=== PATIENT | male | born 1965 | race Caucasian/White ===

== ENCOUNTER 2019-06-15 17:53 | Inpatient (IN) ==
[2019-06-15] MEDS ORDERED: Ondansetron 4 MG/2 ML VIAL IVP ONE (18:50)
[2019-06-15] MEDS ORDERED: 0.9 % Sodium Chloride 1,000 ML IVC ONE (19:10)
[2019-06-15] MEDS ORDERED: Morphine Sulfate 2 MG/ML SYRINGE IVP ONE ×2 (19:11→20:57)
[2019-06-15 19:58] LABS: Bilirubin,Urine Small (Negative); Blood,Urine Negative (Negative); Clarity,Urine Turbid (Clear); Color,Urine Dark Yellow (Yellow); Glucose,Urine (UA) Normal (Normal); Ketones,Urine Trace mg/dL (Negative); Leukocyte Esterase,Urine Trace (Negative); Nitrite,Urine Negative (Negative); Protein,Urine 100 mg/dL (Neg-Trace); Specific Gravity,Urine 1.028 (1.010-1.025); Urobilinogen,Urine Normal (Normal)
[2019-06-15 20:00] LABS: Bacteria,Urine None Seen per hpf (None-Few); Hyaline Casts,Urine Moderate per lpf (None-Few); Squamous Epithelial Cell,Urine Many per lpf (None-Few)
[2019-06-15 20:29] LABS: Basophils % 0.2 %; Eosinophils % 0.1 %; Hematocrit 45.2 % (37.5-50.1); Hemoglobin 15.1 g/dL (12.9-16.9); Immature Granulocytes % 0.4 % (0-4); Lymphocytes % 7.1 %; Mean Corpuscular HGB Conc 33.4 g/dL (31.6-35.5); Mean Corpuscular Hemoglobin 28.7 pg (28.0-33.3); Mean Corpuscular Volume 85.8 fL (83.0-100.0); Mean Platelet Volume 10.8 fL (9.4-12.4); Monocytes # 0.8 K/mcL (0.0-1.3); Monocytes % 5.6 %; Neutrophils # 12.3 K/mcL (1.6-8.9); Platelet Count 277 K/mcL (140-400); Red Blood Count 5.27 M/mcL (4.19-5.50); Red Cell Distribution Width 14.4 % (11.5-14.5); Segmented Neutrophils % 86.6 %; White Blood Count 14.2 K/mcL (4.3-11.1)
--- NOTE | 2019-06-15 20:29 | Emergency Department Note ---
Disposition Clinical Impression: Small bowel obstruction Disposition: Admitted As Inpatient Condition: Fair Referrals: NONE,PCP [Primary Care Provider] - Time of Disposition: 20:29 Abdominal Pain HPI - General Chief Complaint: ED Abdominal Pain Stated Complaint: ABD Pain,Vomiting,weakness Time Seen by Provider: 06/15/19 18:34 Source: patient Mode of arrival: ambulatory Limitations: no limitations Nursing Notes Reviewed: Yes Vital Signs Reviewed: Yes - History of Present Illness Pain Scale: 8 - Related Data Allergies Allergy/AdvReac Type Severity Reaction Status Date / Time No Known Allergies Allergy Verified 06/15/19 18:08 Abdominal Pain PMH - Past Medical History Medical history: Reports: diabetes, hypertension Male Surgical History: Reports: appendectomy, cholecystectomy, colectomy Psychiatric history: Reports: no psych history - Social History Smoking status: Never smoker Alcohol use: Reports: rarely Drug use: Reports: none Physical Exam - General Limitations: no limitations General appearance: alert, in distress Course Vital Signs Temperature 98.3 F 06/15/19 18:08 Pulse Rate 113 06/15/19 18:08 Respiratory Rate 18 06/15/19 18:08 Blood Pressure 120/81 06/15/19 18:08 O2 Sat by Pulse Oximetry 98 06/15/19 18:08 Temperature 98.3 F 06/15/19 18:08 Pulse Rate 113 06/15/19 18:08 Respiratory Rate 18 06/15/19 18:08 Blood Pressure 120/81 06/15/19 18:08 O2 Sat by Pulse Oximetry 98 06/15/19 18:08 Oxygen Delivery Oxygen Delivery Room Air Abdominal Pain - Lab Data Lab Results 06/15/19 Range/Units 18:33 Urine Color Dark Yellow (Yellow) Urine Clarity Turbid A (Clear) Urine pH 6.0 (5.0-8.0) pH Units Ur Specific [place] 1.028 H (1.010-1.025) Urine Protein 100 H (Neg-Trace) mg/dL Urine Glucose (UA) Normal (Normal) mg/dL Urine Ketones Trace H (Negative) mg/dL Urine Blood Negative (Negative) Urine Nitrite Negative (Negative) Urine Bilirubin Small H (Negative) Urine Urobilinogen Normal (Normal) mg/dL Ur Leukocyte Esterase Trace H (Negative) Urine Microscopic RBC 5-15 H (0-3) per hpf Urine Microscopic WBC 5-15 H (0-3) per hpf Ur Squamous Epith Cells Many H (None-Few) per lpf Urine Bacteria None Seen (None-Few) per hpf Hyaline Casts Moderate H (None-Few) per lpf Ur Culture Indicated? YES A (NO) Attestation Statement - Attestation Attestation: I have seen this patient with the resident physician, I have personally evaluated this patient. I had reviewed the chart and document dictation by the resident physician and aM in agreement with the information documented by the resident physician. Please see documentation by the resident physician for complete chart including past medical history, family medical history, review of systems, current history and physical and laboratory and imaging studies. I was present for all procedures, provided direct supervision for all procedures, was present for the entirety of all procedures and provided direct guidance during the procedures. Please see documentation by the resident physician for any procedures performed. I have reviewed all interpretations of EKGs, and reviewed all EKGs performed on patient's as well. I have also reviewed reports of imaging as provided by radiology. Patient presented to emergency department with chief complaint of sudden onset of progressively increasing abdominal pain nausea vomiting with bilious- appearing emesis, he states he is also not passed gas or had a bowel movement, he is concerned that he has a small bowel obstruction he had problems with a bowel obstruction the past actually required partial colectomy related to this. He is also his appendix taken out as well as his gallbladder removed. The patient states that he has had no fevers or chills. He denies headache or neck pain. He denies any urinary changes low has noted some darkening of his urine. Denies any significant body aches or pains but states that he has been working very hard the last few days increased instruction states it is nothing really different than usual. On physical examination he is uncomfortable in appearance, cranial nerves are grossly intact oropharynx reveals slightly dry appearing mucous membranes. Lungs are clear heart is regular tachycardic, with a heart rate of 110. The abdomen is distended, decreased bowel sounds diffusely tender without rebound guarding or peritoneal sign. Skin is warm dry without rash or petechiae. Patient an IV placed, was given IV fluids IV pain medication IV nausea medication laboratory studies and a CT scan were ordered. CT scan showed evidence for small bowel obstruction with a transition zone in the pelvis likely related to scar tissue per radiology read secondary to prior surgeries. Surgery will be contacted, for admission of this patient, will also discuss consideration of an NG tube with surgery.
[2019-06-15 20:48] LABS: Alanine Aminotransferase 51 Units/L (7-52); Albumin 4.2 g/dL (3.5-5.7); Albumin/Globulin Ratio 1.4 (1.1-2.2); Alkaline Phosphatase 140 Units/L (34-104); Aspartate Amino Transferase 28 Units/L (13-39); BUN/Creatinine Ratio 11 (6-26); Bilirubin,Direct 0.2 mg/dL (0.0-0.2); Bilirubin,Indirect 0.6 mg/dL (0.0-1.2); Bilirubin,Total 0.8 mg/dL (0.3-1.0); Blood Urea Nitrogen 12 mg/dL (6-20); Calcium 9.5 mg/dL (8.6-10.3); Carbon Dioxide 33 mEq/L (23-29); Chloride 95 mEq/L (98-107); Globulin 2.9 g/dL (2.4-3.5); Glucose 155 mg/dL (70-105); Lipase 20 Units/L (11-82); Osmolality,Calculated 283 (280-300); Potassium 2.7 mEq/L (3.5-5.1); Sodium 135 mEq/L (136-145); Total Protein 7.1 g/dL (6.4-8.9); eGFR For African Americans > 60 (> 60); eGFR For Non-African Americans > 60 (> 60)
[2019-06-15] MEDS ORDERED: Potassium Chloride 40 MEQ, Lidocaine 1% 2 ML in D5% in Water 500 ML IVPB ONE (20:48)
[2019-06-15] MEDS ORDERED: Piperacillin/Tazobactam 3.375 GM in 0.9 % Sodium Chloride Mini Bag 100 ML IVPB ONE (20:54)
[2019-06-15] MEDS ORDERED: Ringers Solution, Lactated 1,000 ML IVC SCH (21:00)
[2019-06-15] MEDS ORDERED: 0.9 % Sodium Chloride 1,000 ML IVC SCH (21:00)
--- NOTE | 2019-06-15 21:29 | Emergency Department Note ---
Disposition Clinical Impression: Small bowel obstruction Disposition: Admitted As Inpatient Condition: Fair Time of Disposition: 21:29 General Adult HPI - General Chief complaint: ED Abdominal Pain Stated complaint: ABD Pain,Vomiting,weakness Time Seen by Provider: 06/15/19 18:34 Source: patient Mode of arrival: ambulatory Limitations: no limitations Nursing Notes Reviewed: Yes Vital Signs Reviewed: Yes - History of Present Illness HPI Narrative: Patient is a 53-year-old male with past medical history of colectomy, appendectomy and cholecystectomy presents to ED for evaluation of sudden onset cramping abdominal pain that is worsened in intensity overnight beginning at 7:00 PM yesterday evening. He states he has not had a bowel movement or passed gas today. Episodes of bilious emesis prior to arrival today. Pain Scale: 8 - Related Data Home Medications Medication Instructions Recorded Confirmed Metformin HCl [Fortamet] 500 mg PO DAILY 06/15/19 06/16/19 Omeprazole [PriLOSEC] 40 mg PO DAILY 06/15/19 06/16/19 Tadalafil [Cialis] 5 mg PO DAILY 06/15/19 06/16/19 hydroCHLOROthiazide 25 mg PO DAILY 06/15/19 06/16/19 [Hydrochlorothiazide] Buprenorphine HCl/Naloxone HCl 1.75 strip SL DAILY 06/16/19 06/16/19 [Suboxone 8 mg-2 mg Sl Film] Mometasone/Formoterol [Dulera 200 1 puff PO BID PRN 06/16/19 06/16/19 Mcg/5 Mcg Inhaler] Testosterone 1.62 mg TP DAILY 06/16/19 06/16/19 Allergies Allergy/AdvReac Type Severity Reaction Status Date / Time No Known Allergies Allergy Verified 06/16/19 15:24 All systems ED: reviewed and negative except as stated. Review of Systems: As Per HPI Constitutional: Denies: fever, chills Cardiovascular: Denies: chest pain Gastrointestinal: Reports: abdominal pain, nausea, vomiting. Denies: diarrhea, constipation, hematemesis, melena, hematochezia Musculoskeletal: Denies: back pain Past Medical History - Past Medical History Attestation: Yes The following information was validated with the patient. Medical history: Reports: diabetes, hypertension Psychiatric history: Reports: no psych history - Social History Smoking Status: Never smoker Smokeless Tobacco Status: No Alcohol use: Reports: rarely Drug use: Reports: none Physical Exam CONSTITUTIONAL: Alert and oriented X3, actively vomiting. Tachycardic otherwise vitals WNL. HEAD: Normocephalic; atraumatic. EYES: PERRL, no scleral icterus. NOSE: The nose is normal in appearance without rhinorrhea RESP: Normal chest excursion with respiration; breath sounds clear and equal bilaterally; no wheezes, rhonchi, or rales CARD: Regular rhythm, without murmurs, rub or gallop ABD: Distended; Diffusely tender without rigidity, rebound or guarding. Hypoactive bowel sounds. SKIN: Normal for age and race; warm and dry; no apparent lesions - General Limitations: no limitations General appearance: alert, in distress Course Course Narrative: Patient was evaluated with concerns for obstruction given his prior history and his current symptoms. CT scan did show small bowel obstruction with the transition zone in the mid pelvis possibly secondary to adhesion from prior surgery. Labs were significant for leukocytosis as well as a hypokalemic at 2.7. I suspect this is due to episodes of emesis prior to arrival. I discussed with the surgical list instructional resource teacher, Dr. Funes and she agreed to consult on the patient with primary admission to the hospitalist. Recommended NG tube with low intermittent suctioning, maintenance IV fluids, and Zosyn given the white count. I discussed with the hospitalist on-call, Dr. Camp he agreed to accept patient. I also ordered replacement potassium for the patient. Vital Signs Temperature 98.3 F 06/15/19 18:08 Pulse Rate 113 06/15/19 18:08 Respiratory Rate 18 06/15/19 18:08 Blood Pressure 120/81 06/15/19 18:08 O2 Sat by Pulse Oximetry 98 06/15/19 18:08 Temperature 98.3 F 06/15/19 18:08 Pulse Rate 91 06/15/19 20:41 Respiratory Rate 20 06/15/19 20:41 Blood Pressure 136/75 06/15/19 20:41 O2 Sat by Pulse Oximetry 97 06/15/19 20:41 Oxygen Delivery Oxygen Delivery Room Air Medical Decision Making - Medical Records Medical records reviewed: Yes I reviewed the patient's medical records. - Lab Data Lab results reviewed: Yes I reviewed the patient's lab results. Result diagrams: 06/16/19 06:05 06/16/19 06:05 Lab Results 06/15/19 06/15/19 06/15/19 Range/Units 18:33 19:55 19:55 WBC 14.2 H (4.3-11.1) K/mcL RBC 5.27 (4.19-5.50) M/mcL Hgb 15.1 (12.9-16.9) g/dL Hct 45.2 (37.5-50.1) % MCV 85.8 (83.0-100.0) fL MCH 28.7 (28.0-33.3) pg MCHC 33.4 (31.6-35.5) g/dL RDW 14.4 (11.5-14.5) % Plt Count 277 (140-400) K/mcL MPV 10.8 (9.4-12.4) fL Immature Gran % 0.4 (0-4) % Seg Neutrophils % 86.6 % Lymphocytes % 7.1 % Monocytes % 5.6 % Eosinophils % 0.1 % Basophils % 0.2 % Neutrophils # 12.3 H (1.6-8.9) K/mcL Lymphocytes # 1.0 (0.6-4.6) K/mcL Monocytes # 0.8 (0.0-1.3) K/mcL Eosinophils # 0.0 (0.0-0.6) K/mcL Basophils # 0.0 (0.0-0.2) K/mcL Sodium 135 L (136-145) mEq/L Potassium 2.7 L (3.5-5.1) mEq/L Chloride 95 L (98-107) mEq/L Carbon Dioxide 33 H (23-29) mEq/L BUN 12 (6-20) mg/dL Creatinine 1.06 (0.70-1.30) mg/dL Est GFR ( Amer) > 60 (> 60) Est GFR (Non-Af Amer) > 60 (> 60) BUN/Creatinine Ratio 11 (6-26) Glucose 155 H (70-105) mg/dL Calculated Osmolality 283 (280-300) Calcium 9.5 (8.6-10.3) mg/dL Total Bilirubin 0.8 (0.3-1.0) mg/dL Direct Bilirubin 0.2 (0.0-0.2) mg/dL Indirect Bilirubin 0.6 (0.0-1.2) mg/dL AST 28 (13-39) Units/L ALT 51 (7-52) Units/L Alkaline Phosphatase 140 H (34-104) Units/L Creatine Kinase (30-223) Units/L Serum Total Protein 7.1 (6.4-8.9) g/dL Albumin 4.2 (3.5-5.7) g/dL Globulin 2.9 (2.4-3.5) g/dL Albumin/Globulin Ratio 1.4 (1.1-2.2) Lipase 20 (11-82) Units/L Urine Color Dark Yellow (Yellow) Urine Clarity Turbid A (Clear) Urine pH 6.0 (5.0-8.0) pH Units Ur Specific [place] 1.028 H (1.010-1.025) Urine Protein 100 H (Neg-Trace) mg/dL Urine Glucose (UA) Normal (Normal) mg/dL Urine Ketones Trace H (Negative) mg/dL Urine Blood Negative (Negative) Urine Nitrite Negative (Negative) Urine Bilirubin Small H (Negative) Urine Urobilinogen Normal (Normal) mg/dL Ur Leukocyte Esterase Trace H (Negative) Urine Microscopic RBC 5-15 H (0-3) per hpf Urine Microscopic WBC 5-15 H (0-3) per hpf Ur Squamous Epith Cells Many H (None-Few) per lpf Urine Bacteria None Seen (None-Few) per hpf Hyaline Casts Moderate H (None-Few) per lpf Ur Culture Indicated? YES A (NO) 06/15/19 Range/Units 19:55 WBC (4.3-11.1) K/mcL RBC (4.19-5.50) M/mcL Hgb (12.9-16.9) g/dL Hct (37.5-50.1) % MCV (83.0-100.0) fL MCH (28.0-33.3) pg MCHC (31.6-35.5) g/dL RDW (11.5-14.5) % Plt Count (140-400) K/mcL MPV (9.4-12.4) fL Immature Gran % (0-4) % Seg Neutrophils % % Lymphocytes % % Monocytes % % Eosinophils % % Basophils % % Neutrophils # (1.6-8.9) K/mcL Lymphocytes # (0.6-4.6) K/mcL Monocytes # (0.0-1.3) K/mcL Eosinophils # (0.0-0.6) K/mcL Basophils # (0.0-0.2) K/mcL Sodium (136-145) mEq/L Potassium (3.5-5.1) mEq/L Chloride (98-107) mEq/L Carbon Dioxide (23-29) mEq/L BUN (6-20) mg/dL Creatinine (0.70-1.30) mg/dL Est GFR ( Amer) (> 60) Est GFR (Non-Af Amer) (> 60) BUN/Creatinine Ratio (6-26) Glucose (70-105) mg/dL Calculated Osmolality (280-300) Calcium (8.6-10.3) mg/dL Total Bilirubin (0.3-1.0) mg/dL Direct Bilirubin (0.0-0.2) mg/dL Indirect Bilirubin (0.0-1.2) mg/dL AST (13-39) Units/L ALT (7-52) Units/L Alkaline Phosphatase (34-104) Units/L Creatine Kinase 171 (30-223) Units/L Serum Total Protein (6.4-8.9) g/dL Albumin (3.5-5.7) g/dL Globulin (2.4-3.5) g/dL Albumin/Globulin Ratio (1.1-2.2) Lipase (11-82) Units/L Urine Color (Yellow) Urine Clarity (Clear) Urine pH (5.0-8.0) pH Units Ur Specific [place] (1.010-1.025) Urine Protein (Neg-Trace) mg/dL Urine Glucose (UA) (Normal) mg/dL Urine Ketones (Negative) mg/dL Urine Blood (Negative) Urine Nitrite (Negative) Urine Bilirubin (Negative) Urine Urobilinogen (Normal) mg/dL Ur Leukocyte Esterase (Negative) Urine Microscopic RBC (0-3) per hpf Urine Microscopic WBC (0-3) per hpf Ur Squamous Epith Cells (None-Few) per lpf Urine Bacteria (None-Few) per hpf Hyaline Casts (None-Few) per lpf Ur Culture Indicated? (NO) - Radiology Data Radiology results reviewed: Yes I reviewed the patient's radiology results. Abdomen/Pelvis CT 06/15/19 18:51 IMPRESSION: Small bowel obstruction with transition zone in the mid pelvis. Obstruction may be secondary to an adhesion from prior surgery. There are postsurgical changes from resection of the cecum and ileocecal valve. The gallbladder is surgically absent. Mild fatty infiltration liver. D/ / Yony Henriquez MD / Yony Henriquez MD Interpreting Provider: Yony Henriquez MD Attestation Statement - Attestation Attestation: I have seen this patient with the resident physician, I have personally evaluated this patient. I had reviewed the chart and document dictation by the resident physician and aM in agreement with the information documented by the resident physician. Please see documentation by the resident physician for complete chart including past medical history, family medical history, review of systems, current history and physical and laboratory and imaging studies. I was present for all procedures, provided direct supervision for all procedures, was present for the entirety of all procedures and provided direct guidance during the procedures. Please see documentation by the resident physician for any procedures performed. I have reviewed all interpretations of EKGs, and reviewed all EKGs performed on patient's as well. I have also reviewed reports of imaging as provided by radiology.
[2019-06-15] MEDS ORDERED: Ondansetron 4 MG/2 ML VIAL IVP PRN (22:58)
[2019-06-15] MEDS ORDERED: *HR* Dextrose 50 % in Water (Syg) 50 ML SYRINGE IVP PRN (23:13)
[2019-06-15] MEDS ORDERED: Dextrose Gel 15 GM/37.5 ML TUBE PO PRN ×2 (23:13)
--- NOTE | 2019-06-15 23:13 | Internal Med History&Physical ---
Date of Encounter: 06/15/19 Time of Encounter: 23:12 Internal Medicine - H&P: HPI Chief complaint: abdominal pain Admitted From: Home Plans for Post Hospital Care: Home History of present illness: Cr Morgan is a 53 year old man with a history of partial colectomy in 2011 secondary to an obstruction at which time he also underwent cholecystectomy and appendectomy. He presents emergency room complaining of diffuse abdominal pain that started yesterday evening described as cramping accompanied by bowel distention and bloating. He says his last bowel movement was 2 days ago and has not passed any gas today. He also complains of profuse bilious vomiting today. No fever or chills reported. In the emergency room he was tachycardic and CT scan showed concerns for small bowel obstruction with transition zone in the mid pelvis. He was given analgesics and started on IV fluids. Vitals: Reviewed General: Obese white male lying in bed in no acute distress. Skin: Warm, diaphoretic. HEENT: Moist mucous membranes. No conjunctivae pallor. Neck: No lymphadenopathy. No JVD. No carotid bruits. No palpable thyroid. Chest: Normal thoracic expansion. Normal breath sounds. Clear to auscultation. Heart: Normal S1 & S2; rhythmic. No rubs or murmurs. Abdomen: Distended, soft and mildly tender to palpation. No peritoneal reaction. Bowel sounds are not present. Extremities: No clubbing, cyanosis or edema. No calf tenderness. Normal distal pulses. Neurological: Awake, alert and oriented to person, place and time. No focal deficits. Psych: Affect appropriate. Assessment/Plan 1. Small bowel obstruction: Unclear if it is mechanical and secondary to adhesions given his prior surgical history. He does have a rather notable hypokalemia which could be a causal factor in itself for a functional ileus however it could also be secondary to the profuse vomiting developed due to the obstruction. Surgery consult has been placed. Will keep him NPO, NG tube ordered to LIS, analgesics/antiemetics as needed and fluid resuscitation. 2. Hypokalemia: Supplement intravenously. Check Mg and Phos as well. 3. DVT prophylaxis: Subq heparin ordered. Past Med Surg Social Fam HX - Past Medical History Medical history: diabetes, hypertension Psychiatric history: no psych history - Past Surgical History Additional surgical history: back sx, knee sx, leg sx - Social History Smoking Status: Never smoker Smokeless Tobacco Status: No Alcohol use: rarely Drug use: none Internal Medicine - H&P: Meds Androgel TP DAILY 06/15/19 [History] Cialis 5 PO DAILY 06/15/19 [History] Hydrochlorothiazide PO DAILY 06/15/19 [History] Omeprazole 40 PO DAILY 06/15/19 [History] metFORMIN 500 PO DAILY 06/15/19 [History] Allergy/AdvReac Type Severity Reaction Status Date / Time No Known Allergies Allergy Verified 06/15/19 18:08 All Systems PM: A 10-system review of systems was performed and is negative for pertinent findin gs except as documented above in the HPI. Family history reviewed and found non-contributory. - Constitutional Vitals: Temp Pulse Resp BP Pulse Ox 98.3 F 91 20 124/70 97 06/15/19 18:08 06/15/19 20:41 06/15/19 22:55 06/15/19 22:55 06/15/19 20:41 Exam: . Internal Med - H&P Results - Labs CBC & Chem 7: 06/15/19 19:55 06/15/19 19:55 Labs: Short CBC 06/15/19 Range/Units 19:55 WBC 14.2 H (4.3-11.1) K/mcL Hgb 15.1 (12.9-16.9) g/dL Hct 45.2 (37.5-50.1) % Plt Count 277 (140-400) K/mcL Neutrophils # 12.3 H (1.6-8.9) K/mcL BMP 06/15/19 19:55 Sodium 135 L Potassium 2.7 L Chloride 95 L Carbon Dioxide 33 H BUN 12 Creatinine 1.06 Glucose 155 H Calcium 9.5 Liver Function 06/15/19 Range/Units 19:55 Total Bilirubin 0.8 (0.3-1.0) mg/dL Direct Bilirubin 0.2 (0.0-0.2) mg/dL AST 28 (13-39) Units/L ALT 51 (7-52) Units/L Alkaline Phosphatase 140 H (34-104) Units/L Albumin 4.2 (3.5-5.7) g/dL Urine 06/15/19 Range/Units 18:33 Urine Color Dark Yellow (Yellow) Urine Clarity Turbid A (Clear) Urine pH 6.0 (5.0-8.0) pH Units Ur Specific [place] 1.028 H (1.010-1.025) Urine Protein 100 H (Neg-Trace) mg/dL Urine Glucose (UA) Normal (Normal) mg/dL - Impressions ITS Impressions Abdomen/Pelvis CT 06/15/19 18:51 IMPRESSION: Small bowel obstruction with transition zone in the mid pelvis. Obstruction may be secondary to an adhesion from prior surgery. There are postsurgical changes from resection of the cecum and ileocecal valve. The gallbladder is surgically absent. Mild fatty infiltration liver. D/ / Yony Henriquez MD / Yony Henriquez MD Interpreting Provider: Yony Henriquez MD - Time Spent With Patient Total time spent is greater than 50% in coordination of care (as documented) at patient's floor/unit and/or counseling patient: Greater than 35 minutes
[2019-06-16] MEDS ORDERED: *HR* OxyCODONE Immed Rel 5 MG TABLET PO PRN (02:25)
[2019-06-16] MEDS: Insulin LISPRO 300 UNITS/3 ML VIAL SQ SCH ×5 (03:09→23:48)
--- NOTE | 2019-06-16 05:27 | AcuteCare Surgery Consult Note ---
Date of Encounter: 06/16/19 Time of Encounter: 05:00 Assessment and Plan (1) Small bowel obstruction Current Visit: Yes Status: Acute Continue IVF/NPO/NGT. However, pt reports no improvement after the initiation of conservative therapy for SBO. He is writhing in pain. Pt is in severe distress due to the pain of his obstruction. Recommend surgery to release SBO. Procedure, risks and benefits of surgery are discussed. Possible complications include but, are not limitied to bleeding, infection or bowel injury. Pt understands and wished to proceed with [facility]. Case will be discussed with acute care surgeon on duty today. COnsent is obtained and surgery is scheduled. 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 He describes the pain as sharp. It is diffuse. It is severe and doubled him over in pain. He reports several episodes of nausea and vomiting. He denies hematemesis. He reports small liquid BM a little while ago. Past Med Surg Social Fam HX - Past Medical History Medical history: diabetes, hypertension Psychiatric history: no psych history - Past Surgical History Additional surgical history: back sx, knee sx, leg sx - Social History Smoking Status: Never smoker Smokeless Tobacco Status: No Alcohol use: rarely Drug use: none Medications and Allergies Androgel TP DAILY 06/15/19 [History] Cialis 5 PO DAILY 06/15/19 [History] Hydrochlorothiazide PO DAILY 06/15/19 [History] Omeprazole 40 PO DAILY 06/15/19 [History] metFORMIN 500 PO DAILY 06/15/19 [History] Allergy/AdvReac Type Severity Reaction Status Date / Time No Known Allergies Allergy Verified 06/15/19 18:08 Review of Systems All systems PM: The remainder of the systems were reviewed and are negative - Constitutional anorexia, no chills, no fatigue, no fever(s), no night sweats, no weakness, no weight loss - EENT Nose, mouth and throat: dry mouth, no dysphagia, no nasal congestion, no nasal discharge, no sinus pain, no sinus pressure, no sore throat - Cardiovascular no chest pain, no diaphoresis, no dyspnea, no edema - Respiratory no cough, no dyspnea, no wheezing - Gastrointestinal abdominal pain, belching, bloating, constipation, cramping, nausea, vomiting, no diarrhea, no hematemesis - Genitourinary no dysuria, no flank pain, no urinary frequency - Musculoskeletal no back pain, no joint swelling, no limited range of motion, no neck pain - Integumentary no dry skin, no pruritus, no rash, no wounds, no jaundice - Neurological no confusion, no dizziness, no focal weakness, no syncope, no weakness - Psychiatric no anxiety, no depression - Hematologic/Lymphatic no easy bleeding, no easy bruising General Surgery Exam Initial Vital Signs Temp Pulse Resp BP Pulse Ox 98.3 F 113 18 120/81 98 06/15/19 18:08 06/15/19 18:08 06/15/19 18:08 06/15/19 18:08 06/15/19 18:08 - General physical appearance moderate distress, severe pain, other (Pt is in distress and appears to have peritoneal signs). negative: jaundice - Eyes PERRL, normal ocular movement. negative: icteric - ENT no congestion, dry mucosa. negative: nasal discharge - Neck no masses, trachea midline, no lymphadectomy, no venous distension - Respiratory normal respiratory effort, clear to auscultation - Cardiovascular Cardiovascular exam: Present: RRR. Absent: JVD - Abdomen Abdomen general surgery: Present: bowel sounds present (hypoactive with tinkles), distended, tender. Absent: guarding, rebound Abdominal Tenderness: Present: diffusely - Genitourinary Present: normal penis with no external lesions - Integumentary Integumentary general surgery: Present: warm and dry - Neurologic Present: CN 2-12 grossly intact, normal coordination - Musculoskeletal Present: normal posture - Psychiatric Psychiatric general surgery: Present: A&Ox3, appropriate Exam Initial Vital Signs Temp Pulse Resp BP Pulse Ox 98.3 F 113 18 120/81 98 06/15/19 18:08 06/15/19 18:08 06/15/19 18:08 06/15/19 18:08 06/15/19 18:08 Results - Labs 06/16/19 06:05 06/15/19 19:55 Abnormal lab results WBC 14.2 K/mcL (4.3-11.1) H 06/15/19 19:55 Neutrophils # 12.3 K/mcL (1.6-8.9) H 06/15/19 19:55 Sodium 135 mEq/L (136-145) L 06/15/19 19:55 Potassium 2.7 mEq/L (3.5-5.1) L 06/15/19 19:55 Chloride 95 mEq/L (98-107) L 06/15/19 19:55 Carbon Dioxide 33 mEq/L (23-29) H 06/15/19 19:55 Glucose 155 mg/dL (70-105) H 06/15/19 19:55 Alkaline Phosphatase 140 Units/L (34-104) H 06/15/19 19:55 Urine Clarity Turbid (Clear) A 06/15/19 18:33 Ur Specific [place] 1.028 (1.010-1.025) H 06/15/19 18:33 Urine Protein 100 mg/dL (Neg-Trace) H 06/15/19 18:33 Urine Ketones Trace mg/dL (Negative) H 06/15/19 18:33 Urine Bilirubin Small (Negative) H 06/15/19 18:33 Ur Leukocyte Esterase Trace (Negative) H 06/15/19 18:33 Urine Microscopic RBC 5-15 per hpf (0-3) H 06/15/19 18:33 Urine Microscopic WBC 5-15 per hpf (0-3) H 06/15/19 18:33 Ur Squamous Epith Cells Many per lpf (None-Few) H 06/15/19 18:33 Hyaline Casts Moderate per lpf (None-Few) H 06/15/19 18:33 Ur Culture Indicated? YES (NO) A 06/15/19 18:33 Diabetes panel 06/15/19 Range/Units 19:55 Sodium 135 L (136-145) mEq/L Potassium 2.7 L (3.5-5.1) mEq/L Chloride 95 L (98-107) mEq/L Carbon Dioxide 33 H (23-29) mEq/L BUN 12 (6-20) mg/dL Creatinine 1.06 (0.70-1.30) mg/dL Glucose 155 H (70-105) mg/dL Calcium 9.5 (8.6-10.3) mg/dL AST 28 (13-39) Units/L ALT 51 (7-52) Units/L Alkaline Phosphatase 140 H (34-104) Units/L Albumin 4.2 (3.5-5.7) g/dL Calcium panel 06/15/19 Range/Units 19:55 Calcium 9.5 (8.6-10.3) mg/dL Albumin 4.2 (3.5-5.7) g/dL Pituitary panel 06/15/19 Range/Units 19:55 Sodium 135 L (136-145) mEq/L Potassium 2.7 L (3.5-5.1) mEq/L Chloride 95 L (98-107) mEq/L Carbon Dioxide 33 H (23-29) mEq/L BUN 12 (6-20) mg/dL Creatinine 1.06 (0.70-1.30) mg/dL Glucose 155 H (70-105) mg/dL Calcium 9.5 (8.6-10.3) mg/dL Adrenal panel 06/15/19 Range/Units 19:55 Sodium 135 L (136-145) mEq/L Potassium 2.7 L (3.5-5.1) mEq/L Chloride 95 L (98-107) mEq/L Carbon Dioxide 33 H (23-29) mEq/L BUN 12 (6-20) mg/dL Creatinine 1.06 (0.70-1.30) mg/dL Glucose 155 H (70-105) mg/dL Calcium 9.5 (8.6-10.3) mg/dL Total Bilirubin 0.8 (0.3-1.0) mg/dL AST 28 (13-39) Units/L ALT 51 (7-52) Units/L Alkaline Phosphatase 140 H (34-104) Units/L Albumin 4.2 (3.5-5.7) g/dL All other labs normal. - Imaging CT scan - abdomen: image reviewed (segment of dilated bowel with obvious transition point and no closed-loop) CT scan - pelvis: image reviewed Consult Discharge Plan - Plan Referrals: NONE,PCP [Primary Care Provider] -
[2019-06-16] MEDS: *HR* Heparin 5,000 UNIT/ML VIAL SQ SCH ×2 (06:22→18:48)
[2019-06-16] MEDS: Ketorolac 30 MG/ML VIAL IVP PRN ×3 (06:29→17:44)
[2019-06-16] MEDS: Ringers Solution, Lactated 1,000 ML IVC SCH ×4 (06:29→20:58)
[2019-06-16 06:30] LABS: Basophils % 0.3 %; Eosinophils # 0.1 K/mcL (0.0-0.6); Eosinophils % 0.6 %; Hemoglobin 14.4 g/dL (12.9-16.9); Immature Granulocytes % 0.3 % (0-4); Lymphocytes # 1.5 K/mcL (0.6-4.6); Lymphocytes % 14.3 %; Mean Corpuscular HGB Conc 33.5 g/dL (31.6-35.5); Mean Corpuscular Volume 86.5 fL (83.0-100.0); Mean Platelet Volume 10.4 fL (9.4-12.4); Monocytes # 0.9 K/mcL (0.0-1.3); Monocytes % 8.5 %; Platelet Count 283 K/mcL (140-400); Red Blood Count 4.97 M/mcL (4.19-5.50); Red Cell Distribution Width 14.6 % (11.5-14.5); White Blood Count 10.5 K/mcL (4.3-11.1)
[2019-06-16 06:36] LABS: INR 0.9; Prothrombin Time 10.6 Seconds (9.4-12.1)
[2019-06-16 06:39] LABS: Activated Partial Thrombo Time 27.6 Seconds (26.0-36.0)
[2019-06-16 06:55] LABS: BUN/Creatinine Ratio 14 (6-26); Blood Urea Nitrogen 14 mg/dL (6-20); Calcium 8.7 mg/dL (8.6-10.3); Carbon Dioxide 32 mEq/L (23-29); Chloride 96 mEq/L (98-107); Glucose 137 mg/dL (70-105); Magnesium 1.9 mg/dL (1.6-2.6); Osmolality,Calculated 291 (280-300); Potassium 2.7 mEq/L (3.5-5.1); Sodium 139 mEq/L (136-145); eGFR For African Americans > 60 (> 60); eGFR For Non-African Americans > 60 (> 60)
[2019-06-16 07:14] LABS: Estimated Average Glucose 169 mg/dl
[2019-06-16] MEDS ORDERED: Potassium Chloride 40 MEQ, Lidocaine 1% 2 ML in D5% in Water 500 ML IVPB ONE (08:09)
[2019-06-16] MEDS: Piperacillin/Tazobactam 3.375 GM in 0.9 % Sodium Chloride Mini Bag 100 ML IVPB SCH ×3 (08:20→23:59)
--- NOTE | 2019-06-16 09:34 | Internal Med Progress Note ---
<Jake Linares L - Last Filed: 06/16/19 16:54> Hospitalist Progress Note - Encounter Date of Encounter: 06/16/19 Time of Encounter: 09:31 - Subjective Interval History: Pt seen and examined. Uncomfortable due to abdominal pain and NG tube placement. Pt reports that abdominal pain is somewhat imporved. Is ready to have surgery pe rformed today for SBO release. Deneis PHILIPPE, SOB, constipation, Diarrhea, changes in urination. Pt reports he has been unable to keep any foods down, including liquids. Reports having a small bowel movement early this morning. He his not passing any flatulence. - Exam Vitals: Temp Pulse Resp BP Pulse Ox 98.4 F 86 15 124/76 93 06/16/19 06:23 06/16/19 06:23 06/16/19 06:23 06/16/19 06:23 06/16/19 06:23 Exam: Gen: Vitals noted. No acute distress. NG tube in place , on suction Eyes: anicteric sclerae, moist conjunctivae; no lid-lag; Pupils equal and reactive to light HENT: Atraumatic, normocephalic; oropharynx clear with moist mucous membranes and no mucosal ulcerations Neck: Trachea midline; supple, no thyromegaly or lymphadenopathy Cardiac: RRR, no murmurs, rubs or gallops, S1/S2 Pulmonary: CTA bilaterally, no wheezes, rales or rhonchi, equal chest expansion Abdomen: tender to light and deep palpation, worse between L and R upper quadrants. No masses. No rigidity or guarding MSK: ROM intact, no joint swelling noted Extremities: no BLE edema, nontender calf, no cyanosis or clubbing Skin: Normal temperature, turgor and texture; no rash, ulcers or subcutaneous nodules Neuro: moves all extremities, no focal deficits. Psych: Appropriate mood and behavior. A&Ox3 - Assessment and Plan (1) Small bowel obstruction Current Visit: Yes Status: Acute Assessment and Plan: Small Bowel obstruction -secondary to adhesions from previous abdominal surgery: Colectomy, appendectomy, Cholecystectomy -Small bowel movement this am -No flatulence Plan: -NPO -NG tube decompression -Pain: Ketorolac 30mg IV q6h -Pain: Oxycodone 10mg PO q4h -Surgery today for SBO release (2) Hypokalemia Current Visit: Yes Status: Acute Assessment and Plan: Secondary to vomiting -Decreased PO intake Plan: -Replace K as needed (3) Essential hypertension Current Visit: No Status: Chronic Assessment and Plan: Hx of HTN -HCTZ at home Plan: -Holding HCTZ -BPs 120s-130s/80's -Continue to monitor (4) Diabetes Current Visit: No Status: Chronic Assessment and Plan: Hx of DM -Metformin at home Plan: -Low-dose sliding scale DVT Prophylaxis: SQ heparin - Time Spent with Patient Total time spent is greater than 50% in coordination of care (as documented) at patient's floor/unit and/or counseling patient: Internal Medicine: Result - Labs CBC & Chem 7: 06/16/19 06:05 06/16/19 06:05 Labs: Short CBC 06/15/19 06/16/19 Range/Units 19:55 06:05 WBC 14.2 H 10.5 (4.3-11.1) K/mcL Hgb 15.1 14.4 (12.9-16.9) g/dL Hct 45.2 43.0 (37.5-50.1) % Plt Count 277 283 (140-400) K/mcL Neutrophils # 12.3 H 8.0 (1.6-8.9) K/mcL BMP 06/15/19 06/16/19 19:55 06:05 Sodium 135 L 139 Potassium 2.7 L 2.7 L Chloride 95 L 96 L Carbon Dioxide 33 H 32 H BUN 12 14 Creatinine 1.06 1.02 Glucose 155 H 137 H Calcium 9.5 8.7 Liver Function 06/15/19 Range/Units 19:55 Total Bilirubin 0.8 (0.3-1.0) mg/dL Direct Bilirubin 0.2 (0.0-0.2) mg/dL AST 28 (13-39) Units/L ALT 51 (7-52) Units/L Alkaline Phosphatase 140 H (34-104) Units/L Albumin 4.2 (3.5-5.7) g/dL Urine 06/15/19 Range/Units 18:33 Urine Color Dark Yellow (Yellow) Urine Clarity Turbid A (Clear) Urine pH 6.0 (5.0-8.0) pH Units Ur Specific [place] 1.028 H (1.010-1.025) Urine Protein 100 H (Neg-Trace) mg/dL Urine Glucose (UA) Normal (Normal) mg/dL - ABG Interpretation ABG results: PT/INR, D-dimer PT 10.6 Seconds (9.4-12.1) 06/16/19 06:05 - Impressions Impressions Abdomen/Pelvis CT 06/15/19 18:51 IMPRESSION: Small bowel obstruction with transition zone in the mid pelvis. Obstruction may be secondary to an adhesion from prior surgery. There are postsurgical changes from resection of the cecum and ileocecal valve. The gallbladder is surgically absent. Mild fatty infiltration liver. D/ / Yony Henriquez MD / Yony Henriquez MD Interpreting Provider: Yony Henriquez MD X-Ray 06/15/19 23:30 IMPRESSION: The enteric tube can only be followed to the level of the gastroesophageal junction. Recommend advancing the tube 12 cm and repeating an image centered lower to provided more optimal exposure. D/ / Jayce Jaimes MD / Jayce Jaimes MD Interpreting Provider: Jayce Jaimes MD X-Ray 06/16/19 00:39 IMPRESSION: The enteric tube is in good position in the stomach. D/ / Jayce Jaimes MD / Jayce Jaimes MD Interpreting Provider: Jayce Jaimes MD Consult Discharge Plan - Plan Referrals: NONE,PCP [Primary Care Provider] - <Emil Varela - Last Filed: 06/16/19 18:14> Hospitalist Progress Note - Encounter Date of Encounter: 06/16/19 - Exam Vitals: Temp Pulse Resp BP Pulse Ox 98.3 F 78 16 120/73 94 06/16/19 12:29 06/16/19 12:29 06/16/19 12:29 06/16/19 12:29 06/16/19 12:29 - Time Spent with Patient Total time spent is greater than 50% in coordination of care (as documented) at patient's floor/unit and/or counseling patient: Internal Medicine: Result - Labs CBC & Chem 7: 06/16/19 06:05 06/16/19 06:05 Labs: Short CBC 06/15/19 06/16/19 Range/Units 19:55 06:05 WBC 14.2 H 10.5 (4.3-11.1) K/mcL Hgb 15.1 14.4 (12.9-16.9) g/dL Hct 45.2 43.0 (37.5-50.1) % Plt Count 277 283 (140-400) K/mcL Neutrophils # 12.3 H 8.0 (1.6-8.9) K/mcL BMP 06/15/19 06/16/19 19:55 06:05 Sodium 135 L 139 Potassium 2.7 L 2.7 L Chloride 95 L 96 L Carbon Dioxide 33 H 32 H BUN 12 14 Creatinine 1.06 1.02 Glucose 155 H 137 H Calcium 9.5 8.7 Liver Function 06/15/19 Range/Units 19:55 Total Bilirubin 0.8 (0.3-1.0) mg/dL Direct Bilirubin 0.2 (0.0-0.2) mg/dL AST 28 (13-39) Units/L ALT 51 (7-52) Units/L Alkaline Phosphatase 140 H (34-104) Units/L Albumin 4.2 (3.5-5.7) g/dL Urine 06/15/19 Range/Units 18:33 Urine Color Dark Yellow (Yellow) Urine Clarity Turbid A (Clear) Urine pH 6.0 (5.0-8.0) pH Units Ur Specific [place] 1.028 H (1.010-1.025) Urine Protein 100 H (Neg-Trace) mg/dL Urine Glucose (UA) Normal (Normal) mg/dL - ABG Interpretation ABG results: PT/INR, D-dimer PT 10.6 Seconds (9.4-12.1) 06/16/19 06:05 - Impressions Impressions Abdomen/Pelvis CT 06/15/19 18:51 IMPRESSION: Small bowel obstruction with transition zone in the mid pelvis. Obstruction may be secondary to an adhesion from prior surgery. There are postsurgical changes from resection of the cecum and ileocecal valve. The gallbladder is surgically absent. Mild fatty infiltration liver. D/ / Yony Henriquez MD / Yony Henriquez MD Interpreting Provider: Yony Henriquez MD X-Ray 06/15/19 23:30 IMPRESSION: The enteric tube can only be followed to the level of the gastroesophageal junction. Recommend advancing the tube 12 cm and repeating an image centered lower to provided more optimal exposure. D/ / Jayce Jaimes MD / Jayce Jaimes MD Interpreting Provider: Jayce Jaimes MD X-Ray 06/16/19 00:39 IMPRESSION: The enteric tube is in good position in the stomach. D/ / Jayce Jaimes MD / Jayce Jaimes MD Interpreting Provider: Jayce Jaimes MD - Attending Attestation I have seen and independently assessed this patient and I agree with plan as documented Plan Small bowel obstruction. Surgery on board and plan for ex-lap. 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
[2019-06-16] MEDS ORDERED: Morphine Sulfate 2 MG/ML SYRINGE IVP ONE (14:09)
[2019-06-16] MEDS ORDERED: *HR* Succinylcholine 200 MG/10 ML VIAL IVP ONE (15:58)
[2019-06-16] MEDS ORDERED: Lidocaine -MPF 2% 2 ML VIAL ONE (15:58)
[2019-06-16] MEDS ORDERED: *HR* FentaNYL (PF) 100 MCG/2 ML VIAL ONE ×2 (15:58→18:02)
[2019-06-16] MEDS ORDERED: Ondansetron 4 MG/2 ML VIAL ONE (15:58)
[2019-06-16] MEDS ORDERED: *HR* Midazolam HCl 2 MG/2 ML VIAL ONE (15:58)
[2019-06-16] MEDS ORDERED: *HR* Rocuronium Bromide 50 MG/5 ML VIAL ONE (15:58)
[2019-06-16] MEDS ORDERED: *HR* Propofol 200 MG/20 ML VIAL IVP ONE ×2 (15:58→16:05)
[2019-06-16] MEDS ORDERED: CefOXitin 1,000 MG VIAL ONE (16:26)
--- NOTE | 2019-06-16 16:32 | Anesthesia Evaluation PreOp ---
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 Any Significant HX Other Medical History: Diabetes Type II Anesthesia History: No Prior Anesthetic Complications, Past Anesthesia (Colectomy, Back Sx, Neck Sx, Leg sx) Alcohol Use: rarely Drug use: none Medications and Allergies Metformin HCl [Fortamet] 500 mg PO DAILY 06/15/19 [History] Omeprazole [PriLOSEC] 40 mg PO DAILY 06/15/19 [History] Tadalafil [Cialis] 5 mg PO DAILY 06/15/19 [History] hydroCHLOROthiazide [Hydrochlorothiazide] 25 mg PO DAILY 06/15/19 [History] Buprenorphine HCl/Naloxone HCl [Suboxone 8 mg-2 mg Sl Film] 1.75 strip SL DAILY 06/16/19 [History] Mometasone/Formoterol [Dulera 200 Mcg/5 Mcg Inhaler] 1 puff PO BID PRN 06/16/19 [History] Testosterone 1.62 mg TP DAILY 06/16/19 [History] Allergy/AdvReac Type Severity Reaction Status Date / Time No Known Allergies Allergy Verified 06/16/19 15:24 - Meds/Allergy Pre-op Review Medications Reviewed: Yes Allergies Reviewed: Yes Beta Blockers on Current Med List: No Anesthesia Results - Labs 06/16/19 06:05 06/16/19 06:05 Anesthesia Exam O2 Sat Height 1.75 m Weight 106.5 kg Weight 106.594 kg Weight 105.687 kg O2 Sat by Pulse Oximetry 94 O2 Sat by Pulse Oximetry 93 O2 Sat by Pulse Oximetry 97 O2 Sat by Pulse Oximetry 96 O2 Sat by Pulse Oximetry 97 O2 Sat by Pulse Oximetry 98 Vital Signs Temp Pulse Resp BP Pulse Ox 98.3 F 113 18 120/81 98 06/15/19 18:08 06/15/19 18:08 06/15/19 18:08 06/15/19 18:08 06/15/19 18:08 NPO (# of Hours): > 8 hrs Pain Scale Used: Numeric (1 - 10) - HEENT Pupil (Motor): Pupils equal, EOMI Mallampati: II Teeth: Missing Denture Type: Upper: Complete Oral Opening: Greater than 3 - CUSTOMER PROFESSIONAL LOC: Oriented CUSTOMER PROFESSIONAL Motor: Normal RUE, Normal LUE, Normal RLE, Normal LLE, Normal Face CUSTOMER PROFESSIONAL Sensory: Normal: RUE, LUE, RLE, LLE, Face - Cardiac Rhythm: Regular Murmur: None JVD: No Carotid Bruit: No - Pulmonary Breath Sounds: bilateral Clear Respiratory Effort: Symmetrical
[2019-06-16] MEDS ORDERED: *HR* HYDROMORPHONE 2 MG/ML VIAL ONE (17:06)
[2019-06-16] MEDS ORDERED: Dexamethasone 4 MG/ML VIAL ONE (17:11)
[2019-06-16] MEDS ORDERED: Acetaminophen IV 1,000 MG/100 ML INFUS..BTL ONE (17:29)
[2019-06-16] MEDS ORDERED: Ketorolac 30 MG/ML VIAL ONE (17:37)
[2019-06-16] MEDS ORDERED: *HR* Promethazine 25 MG/ML VIAL IVP PRN (17:39)
[2019-06-16] MEDS ORDERED: Ondansetron 4 MG/2 ML VIAL IVP ONE (17:39)
--- NOTE | 2019-06-16 18:01 | Operative Note ---
Date of procedure: 06/16/19 Pre-op diagnosis: small bowel obstruction Post-op diagnosis: same Procedure: Exploratory celiotomy with lysis of adhesions. Anesthesia: SANDRAA Surgeon: Ralf Mcneill Was there an operational assistant present: Yes Travel Pta: Neli Joyner Estimated blood loss (cc): 18 Specimen: none Condition: stable Disposition: PACU Procedure in Detail: Date of surgery: 06/16/19 After properly identifying the patient, the patient was brought to the operating room and placed in the supine position. After proper IV sedation was achieved followed by general endotracheal intubation, the patient's abdomen was prepped and draped in normal sterile fashion. A timeout was performed noting the patient's name and type of procedure to be performed. The patient had a prior periumbilical midline incision from a previous right colectomy. A 15 blade scalpel was used to make an incision 1-2 cm above the umbilicus along the previous incision extending inferiorly for 5 cm below the umbilicus down to the subcutaneous to tissue. Bovie cauterization was used to dissect further through the subcutaneous tissue and rectus fascia until the abdomen was entered. The midline incision was extended superiorly along the length of the skin incision. Of note; the patient did have evidence of mesh at the level of the periumbilical region. There were no intra-abdominal adhesions to the abdominal wall noted during entry and a large size Titi wound protector was placed through the incision. The small bowel was extruded through the incision and was noted to contain small bowel to small bowel adhesions. There was evidence of a transition zone after this area of looped adhesions but there was no severe kink identified. The decision was then made to go ahead and perform a lysis of the adhesions using sharp dissection and Bovie cauterization to help straighten the limits of bowel. There is no evidence of a firmness or stenosis along the small bowel segment and after lysis of adhesions the decision was made to conclude the surgical procedure by placing the bowel segment back within the abdomen. Seprafilm was placed within the abdomen and the abdominal wall fascia was then closed using a #1 looped PDS suture 2. Subcutaneous tissue was reapproximated with interrupted 20 and 3-0 Vicryl sutures and the epidermal and dermal layers were closed with lea. Needle, sponge, and instrument counts were correct 2 and the incision was covered with 4 x 4 gauze. The patient was aroused from IV sedation, extubated in the operating room without complication, and transported to the recovery room stable condition.
[2019-06-16] MEDS: *HR* HYDROmorphone (PF) 1 MG/ML SYRINGE IVP PRN ×12 (18:15→19:31)
--- NOTE | 2019-06-16 19:50 | Anesthesia Evaluation Post Op ---
Date of Encounter: 06/16/19 Time of Encounter: 19:50 - Vital Signs Vital Signs: Vital Signs/O2 Sat/Glucose, Most Current Temp Pulse Resp BP Pulse Ox 06/16/19 19:35 99.1 F 87 16 148/86 98 06/16/19 19:25 85 16 143/94 99 06/16/19 19:15 81 16 147/91 98 06/16/19 19:05 98.8 F 81 16 134/63 99 06/16/19 18:55 78 20 152/98 98 06/16/19 18:45 81 20 147/96 97 06/16/19 18:35 99.1 F 79 20 146/85 97 06/16/19 18:25 81 18 142/87 98 06/16/19 18:15 81 16 141/95 92 06/16/19 18:05 97.9 F 87 18 151/102 92 - Lungs Lungs: Clear Ascult./Percussion - Airway Airway: Non-obstructed - Cardiovascular Regular Rate - Mental Status Mental Status: Alert & Oriented, Answers Appropriately - Pain Pain Scale: 0 - Nausea Vomiting Nausea Vomiting: Not Present - Hydration Hydration: NPO - Discharge PostOp Status: Transfer Patient to floor
[2019-06-16] MEDS ORDERED: Ondansetron 4 MG/2 ML VIAL IVP PRN (19:52)
[2019-06-16] MEDS ORDERED: *HR* Dextrose 50 % in Water (Syg) 50 ML SYRINGE IVP PRN (19:52)
[2019-06-16] MEDS ORDERED: Dextrose Gel 15 GM/37.5 ML TUBE PO PRN ×2 (19:52)
[2019-06-16] MEDS: Morphine Sulfate Oral CONC 10 MG/0.5 ML ORAL.SYG SL PRN (21:06)
[2019-06-16] MEDS ORDERED: Acetaminophen IV 1,000 MG/100 ML INFUS..BTL IVPB PRN (22:59)
[2019-06-16] MEDS: Ketorolac 30 MG/ML VIAL IVP SCH (23:51)
[2019-06-17] MEDS: Morphine Sulfate Oral CONC 10 MG/0.5 ML ORAL.SYG SL PRN (03:23)
[2019-06-17 05:28] LABS: Hemoglobin 13.9 g/dL (12.9-16.9); Immature Granulocytes % 0.3 % (0-4); Lymphocytes # 1.1 K/mcL (0.6-4.6); Lymphocytes % 9.3 %; Mean Corpuscular HGB Conc 33.9 g/dL (31.6-35.5); Mean Corpuscular Hemoglobin 29.6 pg (28.0-33.3); Mean Corpuscular Volume 87.2 fL (83.0-100.0); Mean Platelet Volume 10.4 fL (9.4-12.4); Monocytes # 0.7 K/mcL (0.0-1.3); Monocytes % 6.1 %; Neutrophils # 9.6 K/mcL (1.6-8.9); Platelet Count 246 K/mcL (140-400); Red Cell Distribution Width 14.2 % (11.5-14.5); Segmented Neutrophils % 84.3 %; White Blood Count 11.4 K/mcL (4.3-11.1)
[2019-06-17] MEDS: Insulin LISPRO 300 UNITS/3 ML VIAL SQ SCH ×3 (05:30→17:20)
[2019-06-17] MEDS: *HR* Heparin 5,000 UNIT/ML VIAL SQ SCH ×2 (05:32→17:19)
[2019-06-17] MEDS: Ketorolac 30 MG/ML VIAL IVP SCH ×4 (05:32→23:20)
[2019-06-17] MEDS: Ringers Solution, Lactated 1,000 ML IVC SCH ×3 (05:34→19:50)
[2019-06-17 05:45] LABS: BUN/Creatinine Ratio 20 (6-26); Blood Urea Nitrogen 21 mg/dL (6-20); Calcium 8.3 mg/dL (8.6-10.3); Carbon Dioxide 32 mEq/L (23-29); Chloride 98 mEq/L (98-107); Glucose 127 mg/dL (70-105); Osmolality,Calculated 295 (280-300); Potassium 2.8 mEq/L (3.5-5.1); Sodium 140 mEq/L (136-145); eGFR For African Americans > 60 (> 60); eGFR For Non-African Americans > 60 (> 60)
[2019-06-17] MEDS ORDERED: Potassium Chloride 40 MEQ, Lidocaine 1% 2 ML in D5% in Water 500 ML IVPB ONE ×2 (08:11→16:04)
[2019-06-17] MEDS: Piperacillin/Tazobactam 3.375 GM in 0.9 % Sodium Chloride Mini Bag 100 ML IVPB SCH ×3 (08:25→23:22)
--- NOTE | 2019-06-17 08:30 | Internal Med Progress Note ---
<Emil Varela - Last Filed: 06/17/19 14:27> Hospitalist Progress Note - Encounter Date of Encounter: 06/17/19 - Exam Vitals: Temp Pulse Resp BP Pulse Ox 98.3 F 85 16 126/97 96 06/17/19 10:11 06/17/19 10:11 06/17/19 10:11 06/17/19 10:11 06/17/19 10:11 - Time Spent with Patient Total time spent is greater than 50% in coordination of care (as documented) at patient's floor/unit and/or counseling patient: Internal Medicine: Result - Labs CBC & Chem 7: 06/17/19 05:13 06/17/19 05:13 Labs: Short CBC 06/17/19 Range/Units 05:13 WBC 11.4 H (4.3-11.1) K/mcL Hgb 13.9 (12.9-16.9) g/dL Hct 41.0 (37.5-50.1) % Plt Count 246 (140-400) K/mcL Neutrophils # 9.6 H (1.6-8.9) K/mcL BMP 06/17/19 05:13 Sodium 140 Potassium 2.8 L Chloride 98 Carbon Dioxide 32 H BUN 21 H Creatinine 1.03 Glucose 127 H Calcium 8.3 L - ABG Interpretation ABG results: PT/INR, D-dimer PT 10.6 Seconds (9.4-12.1) 06/16/19 06:05 Consult Discharge Plan - Plan Referrals: NONE,PCP [Primary Care Provider] - - Attending Attestation I have seen and independently assessed this patient and I agree with plan as documented Plan Small bowel obstruction. Surgery on board and patient is s/p exploratory laparotomy with lysis of adhesions. Monitor for return of bowel function. Pain control <Jake Linares - Last Filed: 06/17/19 17:19> Hospitalist Progress Note - Encounter Date of Encounter: 06/17/19 Time of Encounter: 08:27 - Subjective Interval History: Patient seen and examined. States feeling somewhat better since surgery yesterday evening. Denies passing any flatulence, denies passing any bowel movements. Patient reports some pain remains but is better than it was yesterday. Denies fever, chills, headache, chest pain, shortness of breath, changes in urination. Pt reports some pain remains and mid abdomen. Patient reports feeling hungry. - Exam Vitals: Temp Pulse Resp BP Pulse Ox 98.3 F 83 16 124/74 95 06/17/19 06:40 06/17/19 06:40 06/17/19 06:40 06/17/19 06:40 06/17/19 06:40 Exam: Gen: Vitals noted. No acute distress. NG tube in place , on suction with some red output. Eyes: anicteric sclerae, moist conjunctivae; no lid-lag; Pupils equal and reactive to light HENT: Atraumatic, normocephalic; oropharynx clear with moist mucous membranes and no mucosal ulcerations Neck: Trachea midline; supple, no thyromegaly or lymphadenopathy Cardiac: RRR, no murmurs, rubs or gallops, S1/S2 Pulmonary: CTA bilaterally, no wheezes, rales or rhonchi, equal chest expansion Abdomen: Bandage over incision above the umbilicus, Clean and dry. Some tenderness to palpation around epigastrium. Abdomen full, no rigidity or guarding. MSK: ROM intact, no joint swelling noted Extremities: no BLE edema, nontender calf, no cyanosis or clubbing Skin: Normal temperature, turgor and texture; no rash, ulcers or subcutaneous nodules Neuro: moves all extremities, no focal deficits. Psych: Appropriate mood and behavior. A&Ox3 - Assessment and Plan (1) Small bowel obstruction Current Visit: Yes Status: Acute Assessment and Plan: Small Bowel obstruction -secondary to adhesions from previous abdominal surgery: Colectomy, lili endectomy, Cholecystectomy -No BMs yet -No flatulence -Pain improved today Plan: -NPO -NG tube decompression -Pain: Ketorolac 30mg IV q6h -Suboxone for pain -Surgery for SBO yesterday -Remove NG tube and advance diet when bowel function improves -continue to monitor for flatulence, and bowel movements (2) Hypokalemia Current Visit: Yes Status: Acute Assessment and Plan: Secondary to vomiting -Decreased PO intake Plan: -Replace K as needed - 80 meq given today - Will recheck BMP in the morning (3) Essential hypertension Current Visit: No Status: Chronic Assessment and Plan: Hx of HTN -HCTZ at home Plan: -Holding HCTZ -BPs 120s-130s/80's -Continue to monitor (4) Diabetes Current Visit: No Status: Chronic Assessment and Plan: Hx of DM -Metformin at home Plan: -Low-dose sliding scale DVT Prophylaxis: SQ heparin - Time Spent with Patient Total time spent is greater than 50% in coordination of care (as documented) at patient's floor/unit and/or counseling patient: Internal Medicine: Result - Labs CBC & Chem 7: 06/17/19 05:13 06/17/19 05:13 Labs: Short CBC 06/17/19 Range/Units 05:13 WBC 11.4 H (4.3-11.1) K/mcL Hgb 13.9 (12.9-16.9) g/dL Hct 41.0 (37.5-50.1) % Plt Count 246 (140-400) K/mcL Neutrophils # 9.6 H (1.6-8.9) K/mcL BMP 06/17/19 05:13 Sodium 140 Potassium 2.8 L Chloride 98 Carbon Dioxide 32 H BUN 21 H Creatinine 1.03 Glucose 127 H Calcium 8.3 L - ABG Interpretation ABG results: PT/INR, D-dimer PT 10.6 Seconds (9.4-12.1) 06/16/19 06:05 <Jake Linares L - Last Filed: 06/17/19 17:19> (4) Diabetes Qualifiers: Diabetes mellitus type: type 2 Diabetes mellitus ad terminal makeup operator insulin use: w ithout group home use Diabetes mellitus complication status: without compli cation Qualified Code(s): E11.9 - Type 2 diabetes mellitus without complic ations
[2019-06-17] MEDS ORDERED: *HR* Buprenorphine HCl 8 MG TAB.SUBL SL SCH (09:00)
[2019-06-17] MEDS ORDERED: *HR* Buprenorphine HCl 2 MG SUBLINGUAL TABLET SL SCH (09:00)
--- NOTE | 2019-06-17 10:02 | AcuteCareSurgery Progress Note ---
Date of Encounter: 06/17/19 Time of Encounter: 07:30 - Assessment and Plan (1) Small bowel obstruction Current Visit: Yes Status: Acute POD#1 Ex lap for SBO release with GEMMA. Maintain NGT but, allow ice chips until increased bowel function. DC narcotic, restart suboxone and maintain antiinflammatory meds. Daily dressing changes. (2) Essential hypertension Current Visit: No Status: Chronic Restart home meds when NGT DC'd (3) Diabetes Current Visit: No Status: Chronic Restart home meds when NGT DC'd Qualifiers: Diabetes mellitus type: type 2 Diabetes mellitus long term acute care registered nurse insulin use: without long term acute care registered nurse use Diabetes mellitus complication status: without complication Qualified Code(s): E11.9 - Type 2 diabetes mellitus without complications Subjective Patient reports: no new complaints, feels better, still having pain, pain is less, no flatus, no bowel movement Narrative: NGT in place Objective Vital Signs - Last 8 Hours Temp Pulse Resp BP Pulse Ox 06/17/19 06:40 98.3 F 83 16 124/74 95 06/17/19 03:23 98.4 F 79 15 126/79 95 Intake and Output 06/16/19 06/17/19 06/17/19 23:59 07:59 15:59 Intake Total 622 / 4344 1100 / 1100 Output Total 2113 / 3463 1150 / 1150 Balance -1491 / 881 -50 / -50 Intake: IV Fluids 622 / 4344 1100 / 1100 Lactated Ringers 1,000 ML @ 125 1000 / 1000 mls/hr IVC .Q8H [facility] Rx#: [id number] Zosyn 3.375 GM In 0.9 % Sodium 100 / 200 100 / 100 Chloride (Mini-Bag +) 100 ML @ 25 mls/hr IVPB Q8HR [facility] Rx#: [id number] Potassium Chloride 40 MEQ 522 / 522 Xylocaine 2 ML In Dextrose 5% 500 ML @ 130.5 mls/hr IVPB ONCE ONE Rx#:[id number] Output: Urine 145 / 145 350 / 350 Gastric Tube Lavage Amount 650 / 650 Right Nare 650 / 650 Estimated Blood Loss Gastric Drainage 1950 / 2550 150 / 150 Right Nare 850 / 850 Other: Blood Glucose* 136 126 - General physical appearance no distress, moderate pain (as expected post-op and improved since pre-op) - Eyes PERRL, normal ocular movement - ENT no congestion, dry mucosa - Neck Neck exam: trachea midline, no venous distension - Respiratory normal respiratory effort, clear to auscultation - Cardiovascular Cardiovascular exam: Present: RRR. Absent: JVD - Abdomen Abdomen: Present: bowel sounds present (mildy hypoactive), soft, tender - Incision Incision: Present: draining (immediately [id number] but, none now), clean and dry, intact - Neurologic CN 2-12 grossly intact, normal coordination - Musculoskeletal normal posture - Psychiatric oriented to time, oriented to person, oriented to place - Labs 06/17/19 05:13 06/17/19 05:13 Diabetes panel 06/17/19 Range/Units 05:13 Sodium 140 (136-145) mEq/L Potassium 2.8 L (3.5-5.1) mEq/L Chloride 98 (98-107) mEq/L Carbon Dioxide 32 H (23-29) mEq/L BUN 21 H (6-20) mg/dL Creatinine 1.03 (0.70-1.30) mg/dL Glucose 127 H (70-105) mg/dL Calcium 8.3 L (8.6-10.3) mg/dL Calcium panel 06/17/19 Range/Units 05:13 Calcium 8.3 L (8.6-10.3) mg/dL Pituitary panel 06/17/19 Range/Units 05:13 Sodium 140 (136-145) mEq/L Potassium 2.8 L (3.5-5.1) mEq/L Chloride 98 (98-107) mEq/L Carbon Dioxide 32 H (23-29) mEq/L BUN 21 H (6-20) mg/dL Creatinine 1.03 (0.70-1.30) mg/dL Glucose 127 H (70-105) mg/dL Calcium 8.3 L (8.6-10.3) mg/dL Adrenal panel 06/17/19 Range/Units 05:13 Sodium 140 (136-145) mEq/L Potassium 2.8 L (3.5-5.1) mEq/L Chloride 98 (98-107) mEq/L Carbon Dioxide 32 H (23-29) mEq/L BUN 21 H (6-20) mg/dL Creatinine 1.03 (0.70-1.30) mg/dL Glucose 127 H (70-105) mg/dL Calcium 8.3 L (8.6-10.3) mg/dL Consult Discharge Plan - Plan Referrals: NONE,PCP [Primary Care Provider] -
[2019-06-18] MEDS: Insulin LISPRO 300 UNITS/3 ML VIAL SQ SCH ×4 (00:17→17:42)
[2019-06-18] MEDS: Ringers Solution, Lactated 1,000 ML IVC SCH ×3 (03:50→17:36)
[2019-06-18 04:40] LABS: Basophils % 0.2 %; Eosinophils % 0.5 %; Hematocrit 39.1 % (37.5-50.1); Immature Granulocytes % 0.5 % (0-4); Lymphocytes # 1.2 K/mcL (0.6-4.6); Lymphocytes % 13.6 %; Mean Corpuscular HGB Conc 33.2 g/dL (31.6-35.5); Mean Corpuscular Hemoglobin 29.3 pg (28.0-33.3); Mean Corpuscular Volume 88.3 fL (83.0-100.0); Mean Platelet Volume 10.1 fL (9.4-12.4); Monocytes # 0.7 K/mcL (0.0-1.3); Monocytes % 8.4 %; Neutrophils # 6.7 K/mcL (1.6-8.9); Platelet Count 222 K/mcL (140-400); Red Blood Count 4.43 M/mcL (4.19-5.50); Red Cell Distribution Width 14.3 % (11.5-14.5); Segmented Neutrophils % 76.8 %; White Blood Count 8.7 K/mcL (4.3-11.1)
[2019-06-18 04:46] LABS: BUN/Creatinine Ratio 20 (6-26); Blood Urea Nitrogen 20 mg/dL (6-20); Calcium 8.1 mg/dL (8.6-10.3); Carbon Dioxide 32 mEq/L (23-29); Chloride 96 mEq/L (98-107); Glucose 115 mg/dL (70-105); Osmolality,Calculated 290 (280-300); Potassium 2.7 mEq/L (3.5-5.1); Sodium 138 mEq/L (136-145); eGFR For African Americans > 60 (> 60); eGFR For Non-African Americans > 60 (> 60)
[2019-06-18] MEDS ORDERED: Potassium Chloride 40 MEQ, Lidocaine 1% 2 ML in D5% in Water 500 ML IVPB ONE ×2 (05:04→09:26)
[2019-06-18] MEDS: Ketorolac 30 MG/ML VIAL IVP SCH ×4 (05:55→23:21)
[2019-06-18] MEDS: *HR* Heparin 5,000 UNIT/ML VIAL SQ SCH ×2 (06:01→17:37)
[2019-06-18] MEDS: *HR* Buprenorphine HCl 2 MG SUBLINGUAL TABLET SL SCH (07:30)
[2019-06-18] MEDS: Piperacillin/Tazobactam 3.375 GM in 0.9 % Sodium Chloride Mini Bag 100 ML IVPB SCH ×3 (07:33→23:22)
--- NOTE | 2019-06-18 08:26 | Internal Med Progress Note ---
<Emil Varela - Last Filed: 06/18/19 14:11> Hospitalist Progress Note - Encounter Date of Encounter: 06/18/19 - Exam Vitals: Temp Pulse Resp BP Pulse Ox 98.5 F 78 17 134/77 97 06/18/19 10:43 06/18/19 10:43 06/18/19 10:43 06/18/19 10:43 06/18/19 10:43 - Time Spent with Patient Total time spent is greater than 50% in coordination of care (as documented) at patient's floor/unit and/or counseling patient: Internal Medicine: Result - Labs CBC & Chem 7: 06/18/19 04:05 06/18/19 12:56 Labs: Short CBC 06/18/19 Range/Units 04:05 WBC 8.7 (4.3-11.1) K/mcL Hgb 13.0 (12.9-16.9) g/dL Hct 39.1 (37.5-50.1) % Plt Count 222 (140-400) K/mcL Neutrophils # 6.7 (1.6-8.9) K/mcL BMP 06/18/19 06/18/19 04:05 12:56 Sodium 138 139 Potassium 2.7 L 2.8 L Chloride 96 L 96 L Carbon Dioxide 32 H 35 H BUN 20 20 Creatinine 1.01 0.97 Glucose 115 H 112 H Calcium 8.1 L 8.8 - ABG Interpretation ABG results: PT/INR, D-dimer PT 10.6 Seconds (9.4-12.1) 06/16/19 06:05 Consult Discharge Plan - Plan Instructions: Lysis of Abdominal Adhesions (DC), Bowel Obstruction (DC) Additional Instructions: General Surgical Discharge Instructions 1. No pushing, pulling, or lifting greater than 15 lbs for 6 weeks. 2. You may remove your dressings and shower beginning today, but no tub baths, soaking, or swimming for 2 weeks. 3. No driving for two weeks unless otherwise specified and then you may resume driving when you are off narcotics and are safe to react in a car. 4. Take ibuprofen every 8 hours for discomfort. Take your chronic suboxone as previously directed. 5. Take stool softeners (Colace) or a water based laxative (Miralax) while taking narcotics. You may hold for loose stools; otherwise your recommended to take MiraLAX daily until you are having daily bowel movements that are mashed potatoes consistency and then you may decrease to every other day or as needed. 6. Report any fevers greater than 100.5F, increase abdominal discomfort, drainage that looks like pus, increased redness or pain at the surgical site, or any vomiting. 7. Report any pain in the calves, shortness of breath, or rapid heartbeat. 8. Follow-up in the office as directed. 9. If you were prescribed antibiotics, do not stop them without talking to your provider. Referrals: Harleen Aldridge, ASSOCIATE ENTERTAINMENT EDITOR [Advanced Practice Nurse] - 07/06/19 2:00 pm NONE,PCP [Primary Care Provider] - - Attending Attestation I have seen and independently assessed this patient and I agree with plan as documented Plan Small bowel obstruction. Surgery on board and patient is s/p exploratory laparotomy with lysis of adhesions. Advance diet as tolerated <Jake Linares - Last Filed: 06/18/19 15:37> Hospitalist Progress Note - Encounter Date of Encounter: 06/18/19 Time of Encounter: 08:24 - Subjective Interval History: Patient seen and examined. Courts passing gas since yesterday evening. No bowel movements as of yet. Nasogastric tube still in place. With gastric out put via suction. Patient reports pain as improved. Patient reports that he is very hungry. Denies fevers, chills, headache, shortness of breath, chest pain, constipation, diarrhea, change in urination. - Exam Vitals: Temp Pulse Resp BP Pulse Ox 98.4 F 81 17 151/84 96 06/18/19 06:35 06/18/19 06:35 06/18/19 06:35 06/18/19 06:35 06/18/19 06:35 Exam: Gen: Vitals noted. No acute distress. NG tube in place , on suction with some red output. Eyes: anicteric sclerae, moist conjunctivae; no lid-lag; Pupils equal and reactive to light HENT: Atraumatic, normocephalic; oropharynx clear with moist mucous membranes and no mucosal ulcerations Neck: Trachea midline; supple, no thyromegaly or lymphadenopathy Cardiac: RRR, no murmurs, rubs or gallops, S1/S2 Pulmonary: CTA bilaterally, no wheezes, rales or rhonchi, equal chest expansion Abdomen: Bandage over incision above the umbilicus, Clean and dry. Some tenderness to palpation around epigastrium. Abdomen soft, no rigidity or guarding MSK: ROM intact, no joint swelling noted Extremities: no BLE edema, nontender calf, no cyanosis or clubbing Skin: Normal temperature, turgor and texture; no rash, ulcers or subcutaneous nodules Neuro: moves all extremities, no focal deficits. Psych: Appropriate mood and behavior. A&Ox3 - Assessment and Plan (1) Small bowel obstruction Current Visit: Yes Status: Acute Assessment and Plan: Small Bowel obstruction -secondary to adhesions from previous abdominal surgery: Colectomy, appendectomy, Cholecystectomy -No BMs yet -Pt has been passing gas since yesterday evening -Pain improved today Plan: -NPO -NG tube decompression -Pain: Ketorolac 30mg IV q6h -Suboxone for pain -Surgery for SBO 06/16/19 -NG tube clamped in the am. Then removed before advancing diet - Diet advanced to clear liquids at lunch (2) Hypokalemia Current Visit: Yes Status: Acute Assessment and Plan: Secondary to vomiting -Decreased PO intake Plan: -Replace K as needed - Potassium not rising with IV Potassium, Will try oral replenishment - Will recheck BMP in the morning (3) Essential hypertension Current Visit: No Status: Chronic Assessment and Plan: Hx of HTN -HCTZ at home Plan: -Restarting HCTZ -BPs rising -Continue to monitor (4) Diabetes Current Visit: No Status: Chronic Assessment and Plan: Hx of DM -Metformin at home Plan: -Low-dose sliding scale DVT Prophylaxis: Sub Q heparin - Time Spent with Patient Total time spent is greater than 50% in coordination of care (as documented) at patient's floor/unit and/or counseling patient: Internal Medicine: Result - Labs CBC & Chem 7: 06/18/19 04:05 06/18/19 12:56 Labs: Short CBC 06/18/19 Range/Units 04:05 WBC 8.7 (4.3-11.1) K/mcL Hgb 13.0 (12.9-16.9) g/dL Hct 39.1 (37.5-50.1) % Plt Count 222 (140-400) K/mcL Neutrophils # 6.7 (1.6-8.9) K/mcL BMP 06/18/19 04:05 Sodium 138 Potassium 2.7 L Chloride 96 L Carbon Dioxide 32 H BUN 20 Creatinine 1.01 Glucose 115 H Calcium 8.1 L - ABG Interpretation ABG results: PT/INR, D-dimer PT 10.6 Seconds (9.4-12.1) 06/16/19 06:05 <Jake Linares - Last Filed: 06/18/19 15:37> (4) Diabetes Qualifiers: Diabetes mellitus type: type 2 Diabetes mellitus group home insulin use: without group home use Diabetes mellitus complication status: without complication Qualified Code(s): E11.9 - Type 2 diabetes mellitus without complications
[2019-06-18 08:39] LABS: Magnesium 1.8 mg/dL (1.6-2.6)
[2019-06-18] MEDS ORDERED: NALOXONE HCL SL SCH (09:00)
[2019-06-18] MEDS ORDERED: BUPRENORPHINE HCL SL SCH (09:00)
[2019-06-18 13:50] LABS: BUN/Creatinine Ratio 21 (6-26); Blood Urea Nitrogen 20 mg/dL (6-20); Calcium 8.8 mg/dL (8.6-10.3); Carbon Dioxide 35 mEq/L (23-29); Chloride 96 mEq/L (98-107); Glucose 112 mg/dL (70-105); Osmolality,Calculated 291 (280-300); Potassium 2.8 mEq/L (3.5-5.1); Sodium 139 mEq/L (136-145); eGFR For African Americans > 60 (> 60); eGFR For Non-African Americans > 60 (> 60)
--- NOTE | 2019-06-18 14:43 | AcuteCareSurgery Progress Note ---
<Harleen Aldridge - Last Filed: 06/18/19 14:48> Date of Encounter: 06/18/19 Time of Encounter: 07:30 - Assessment and Plan (1) Small bowel obstruction Current Visit: Yes Status: Acute Date of procedure: 06/16/19 Pre-op diagnosis: small bowel obstruction Post-op diagnosis: same Procedure: Exploratory celiotomy with lysis of adhesions. Anesthesia: GETA Surgeon: Ralf Mcneill POD #12 as above. Pt reports flatus and pain controlled. NG clamped this am and if residuals were less than 301ml, okay for NG to be discontinued and clear liquid diet without carbonation started. Per chart review at this time (1442) the NG has been discontinued in the clear liquid diet without carbonation has been started. Plan: Continue supportive care and discomfort management while awaiting full return of bowel function Continue G.I. and DVT prophylaxis Incentive spirometry 10 times every hour while awake Out of bed to chair TID, do not offer meal trays while in the bed Activity as tolerated Apply ice 20 minutes on 20 minutes off as needed may advance to full liquid diet for breakfast if he tolerates clears today cares per primary team recommend repeat am labs Subjective Patient reports: no new complaints, feels better, pain is less, voiding w/o dif ficulty, flatus, no bowel movement, afebrile Objective Vital Signs - Last 8 Hours Temp Pulse Resp BP Pulse Ox 06/18/19 10:43 98.5 F 78 17 134/77 97 Intake and Output 06/17/19 06/18/19 06/18/19 23:59 07:59 15:59 Intake Total 622 / 3344 800 / 1722 922 / 1722 Output Total 600 / 3950 1225 / 1800 575 / 1800 Balance 22 / -606 -425 / -78 347 / -78 Intake: IV Fluids 622 / 3344 800 / 1722 922 / 1722 Lactated Ringers 1,000 ML @ 125 700 / 1000 300 / 1000 mls/hr IVC .Q8H [facility] Rx#: [id number] Zosyn 3.375 GM In 0.9 % Sodium 100 / 300 100 / 200 100 / 200 Chloride (Mini-Bag +) 100 ML @ 25 mls/hr IVPB Q8HR [facility] Rx#: [id number] Potassium Chloride 40 MEQ 522 / 522 522 / 522 Xylocaine 2 ML In Dextrose 5% 500 ML @ 130.5 mls/hr IVPB ONCE ONE Rx#:[id number] Oral 0 / 0 0 / 0 Output: Urine 350 / 425 75 / 425 Gastric Drainage 600 / 2750 875 / 1375 500 / 1375 Right Nare 600 / 600 600 / 600 0 / 600 Other: Meal NPO npo Percent of Meal Consumed 0% 0% Stool Size Smear Stool Color Brown # Voids 1 # Bowel Movements 1 Blood Glucose* 112 126 101 - General physical appearance well nourished, no distress - Eyes normal ocular movement - ENT normal nares (NG secured), atraumatic, normocephalic - Neck Neck exam: trachea midline - Respiratory normal expansion, normal respiratory effort - Cardiovascular Cardiovascular exam: Present: RRR - Abdomen Abdomen: Present: bowel sounds present, soft, tender (expected postopeartive) - Incision Incision: Present: clean and dry, intact - Integumentary no rash - Neurologic normal sensation - Musculoskeletal normal posture - Psychiatric oriented to time, oriented to person, oriented to place, speech is normal - Labs 06/18/19 04:05 06/18/19 12:56 Diabetes panel 06/18/19 06/18/19 Range/Units 04:05 12:56 Sodium 138 139 (136-145) mEq/L Potassium 2.7 L 2.8 L (3.5-5.1) mEq/L Chloride 96 L 96 L (98-107) mEq/L Carbon Dioxide 32 H 35 H (23-29) mEq/L BUN 20 20 (6-20) mg/dL Creatinine 1.01 0.97 (0.70-1.30) mg/dL Glucose 115 H 112 H (70-105) mg/dL Calcium 8.1 L 8.8 (8.6-10.3) mg/dL Calcium panel 06/18/19 06/18/19 Range/Units 04:05 12:56 Calcium 8.1 L 8.8 (8.6-10.3) mg/dL Pituitary panel 06/18/19 06/18/19 Range/Units 04:05 12:56 Sodium 138 139 (136-145) mEq/L Potassium 2.7 L 2.8 L (3.5-5.1) mEq/L Chloride 96 L 96 L (98-107) mEq/L Carbon Dioxide 32 H 35 H (23-29) mEq/L BUN 20 20 (6-20) mg/dL Creatinine 1.01 0.97 (0.70-1.30) mg/dL Glucose 115 H 112 H (70-105) mg/dL Calcium 8.1 L 8.8 (8.6-10.3) mg/dL Adrenal panel 06/18/19 06/18/19 Range/Units 04:05 12:56 Sodium 138 139 (136-145) mEq/L Potassium 2.7 L 2.8 L (3.5-5.1) mEq/L Chloride 96 L 96 L (98-107) mEq/L Carbon Dioxide 32 H 35 H (23-29) mEq/L BUN 20 20 (6-20) mg/dL Creatinine 1.01 0.97 (0.70-1.30) mg/dL Glucose 115 H 112 H (70-105) mg/dL Calcium 8.1 L 8.8 (8.6-10.3) mg/dL Consult Discharge Plan - Plan Instructions: Lysis of Abdominal Adhesions (DC), Bowel Obstruction (DC) Additional Instructions: General Surgical Discharge Instructions 1. No pushing, pulling, or lifting greater than 15 lbs for 6 weeks. 2. You may remove your dressings and shower beginning today, but no tub baths, soaking, or swimming for 2 weeks. 3. No driving for two weeks unless otherwise specified and then you may resume driving when you are off narcotics and are safe to react in a car. 4. Take ibuprofen every 8 hours for discomfort. Take your chronic suboxone as previously directed. 5. Take stool softeners (Colace) or a water based laxative (Miralax) while taking narcotics. You may hold for loose stools; otherwise your recommended to take MiraLAX daily until you are having daily bowel movements that are mashed potatoes consistency and then you may decrease to every other day or as needed. 6. Report any fevers greater than 100.5F, increase abdominal discomfort, drainage that looks like pus, increased redness or pain at the surgical site, or any vomiting. 7. Report any pain in the calves, shortness of breath, or rapid heartbeat. 8. Follow-up in the office as directed. 9. If you were prescribed antibiotics, do not stop them without talking to your provider. Referrals: NONE,PCP [Primary Care Provider] - Harleen Aldridge, BLOOD BANK BUSINESS MANAGER [Advanced Practice Nurse] - 07/06/19 2:00 pm <Sunil Laird - Last Filed: 06/18/19 15:14> Date of Encounter: 06/18/19 Objective Vital Signs - Last 8 Hours Temp Pulse Resp BP Pulse Ox 06/18/19 14:51 98.3 F 78 17 143/82 92 06/18/19 10:43 98.5 F 78 17 134/77 97 Intake and Output 06/17/19 06/18/19 06/18/19 23:59 07:59 15:59 Intake Total 622 / 3344 800 / 1722 922 / 1722 Output Total 600 / 3950 1225 / 1800 575 / 1800 Balance 22 / -606 -425 / -78 347 / -78 Intake: IV Fluids 622 / 3344 800 / 1722 922 / 1722 Lactated Ringers 1,000 ML @ 125 700 / 1000 300 / 1000 mls/hr IVC .Q8H [facility] Rx#: [id number] Zosyn 3.375 GM In 0.9 % Sodium 100 / 300 100 / 200 100 / 200 Chloride (Mini-Bag +) 100 ML @ 25 mls/hr IVPB Q8HR [facility] Rx#: [id number] Potassium Chloride 40 MEQ 522 / 522 522 / 522 Xylocaine 2 ML In Dextrose 5% 500 ML @ 130.5 mls/hr IVPB ONCE ONE Rx#:[id number] Oral 0 / 0 0 / 0 Output: Urine 350 / 425 75 / 425 Gastric Drainage 600 / 2750 875 / 1375 500 / 1375 Right Nare 600 / 600 600 / 600 0 / 600 Other: Meal NPO npo Percent of Meal Consumed 0% 0% Stool Size Smear Stool Color Brown # Voids 1 1 # Bowel Movements 1 1 Blood Glucose* 112 126 101 - Labs 06/18/19 04:05 06/18/19 12:56 Diabetes panel 06/18/19 06/18/19 Range/Units 04:05 12:56 Sodium 138 139 (136-145) mEq/L Potassium 2.7 L 2.8 L (3.5-5.1) mEq/L Chloride 96 L 96 L (98-107) mEq/L Carbon Dioxide 32 H 35 H (23-29) mEq/L BUN 20 20 (6-20) mg/dL Creatinine 1.01 0.97 (0.70-1.30) mg/dL Glucose 115 H 112 H (70-105) mg/dL Calcium 8.1 L 8.8 (8.6-10.3) mg/dL Calcium panel 06/18/19 06/18/19 Range/Units 04:05 12:56 Calcium 8.1 L 8.8 (8.6-10.3) mg/dL Pituitary panel 06/18/19 06/18/19 Range/Units 04:05 12:56 Sodium 138 139 (136-145) mEq/L Potassium 2.7 L 2.8 L (3.5-5.1) mEq/L Chloride 96 L 96 L (98-107) mEq/L Carbon Dioxide 32 H 35 H (23-29) mEq/L BUN 20 20 (6-20) mg/dL Creatinine 1.01 0.97 (0.70-1.30) mg/dL Glucose 115 H 112 H (70-105) mg/dL Calcium 8.1 L 8.8 (8.6-10.3) mg/dL Adrenal panel 06/18/19 06/18/19 Range/Units 04:05 12:56 Sodium 138 139 (136-145) mEq/L Potassium 2.7 L 2.8 L (3.5-5.1) mEq/L Chloride 96 L 96 L (98-107) mEq/L Carbon Dioxide 32 H 35 H (23-29) mEq/L BUN 20 20 (6-20) mg/dL Creatinine 1.01 0.97 (0.70-1.30) mg/dL Glucose 115 H 112 H (70-105) mg/dL Calcium 8.1 L 8.8 (8.6-10.3) mg/dL - Attending Attestation patient seen and examined. i have reviewed all labs, imaging, and notes. i have discussed the case in detail with the MANAGER FIBER; i agree with the above assessment and plan and wish to add the following... POd #2 s/p ex lap with GEMMA 2/2 SBO; feels better; NG tube clamped with minimal residual so it was removed; okay for CLD; can ADAT in the AM replace electrolytes limit narcotics activity as tolerated will cont to follow
[2019-06-18] MEDS ORDERED: Acetaminophen 325 MG TABLET PO PRN (16:00)
[2019-06-18] MEDS ORDERED: Insulin LISPRO 300 UNITS/3 ML VIAL SQ SCH (21:00)
[2019-06-18] MEDS ORDERED: D5% in Water 1,000 ML IVC PRN (22:07)
[2019-06-19] MEDS: Ringers Solution, Lactated 1,000 ML IVC SCH ×3 (01:45→10:35)
[2019-06-19 03:29] LABS: BUN/Creatinine Ratio 18 (6-26); Blood Urea Nitrogen 16 mg/dL (6-20); Calcium 8.1 mg/dL (8.6-10.3); Carbon Dioxide 30 mEq/L (23-29); Chloride 100 mEq/L (98-107); Glucose 162 mg/dL (70-105); Magnesium 1.9 mg/dL (1.6-2.6); Osmolality,Calculated 289 (280-300); Phosphorous 2.8 mg/dL (2.7-4.5); Potassium 3.1 mEq/L (3.5-5.1); Sodium 137 mEq/L (136-145); eGFR For African Americans > 60 (> 60); eGFR For Non-African Americans > 60 (> 60)
[2019-06-19] MEDS: *HR* Heparin 5,000 UNIT/ML VIAL SQ SCH (05:49)
[2019-06-19] MEDS: Ketorolac 30 MG/ML VIAL IVP SCH ×2 (05:49→12:27)
[2019-06-19 07:31] VITALS: BP 153/83
--- NOTE | 2019-06-19 08:22 | Internal Med Progress Note ---
Hospitalist Progress Note - Encounter Date of Encounter: 06/19/19 Time of Encounter: 08:19 - Subjective Interval History: Patient seen and examined. No overnight events. Afebrile. Reports having 6 bowel movements since surgery. Reports tolerating diet well. Denies fever, headache, chest pain, shortness of breath, abdominal pain, nausea, vomiting, c onstipation, diarrhea, change in urination. - Exam Vitals: Temp Pulse Resp BP Pulse Ox 98.6 F 73 16 153/83 95 06/19/19 07:24 06/19/19 07:24 06/19/19 07:24 06/19/19 07:24 06/19/19 07:24 Exam: Gen: Vitals noted. No acute distress. NG tube in place , on suction with some red output. Eyes: anicteric sclerae, moist conjunctivae; no lid-lag; Pupils equal and reactive to light HENT: Atraumatic, normocephalic; oropharynx clear with moist mucous membranes and no mucosal ulcerations Neck: Trachea midline; supple, no thyromegaly or lymphadenopathy Cardiac: RRR, no murmurs, rubs or gallops, S1/S2 Pulmonary: CTA bilaterally, no wheezes, rales or rhonchi, equal chest expansion Abdomen: Bandage over incision above the umbilicus, Clean and dry. Some tenderness to palpation around epigastrium. Abdomen soft, no rigidity or guarding MSK: ROM intact, no joint swelling noted Extremities: no BLE edema, nontender calf, no cyanosis or clubbing Skin: Normal temperature, turgor and texture; no rash, ulcers or subcutaneous nodules Neuro: moves all extremities, no focal deficits. Psych: Appropriate mood and behavior. A&Ox3 - Assessment and Plan (1) Small bowel obstruction Current Visit: Yes Status: Acute Assessment and Plan: Small Bowel obstruction -secondary to adhesions from previous abdominal surgery: Colectomy, appendectomy, Cholecystectomy -Normal bowel movements reported since yesterday -Pt has been passing gas since post-op day 1 -Pain improved today - Tolerating diet well Plan: -Pain: Ketorolac 30mg IV q6h -Suboxone for pain -Surgery for SBO 06/16/19 -Advancing diet to full today (2) Hypokalemia Current Visit: Yes Status: Acute Assessment and Plan: Secondary to vomiting -Decreased PO intake Plan: -Replace K as needed - Potassium improving with oral supplementation - Will recheck BMP in the morning (3) Essential hypertension Current Visit: No Status: Chronic Assessment and Plan: Hx of HTN -HCTZ at home Plan: -Restarting HCTZ -BPs 140s-150s systolic -Continue to monitor (4) Diabetes Current Visit: No Status: Chronic Assessment and Plan: Hx of DM -Metformin at home Plan: -Low-dose sliding scale - Time Spent with Patient Total time spent is greater than 50% in coordination of care (as documented) at patient's floor/unit and/or counseling patient: Internal Medicine: Result - Labs CBC & Chem 7: 06/18/19 04:05 06/19/19 02:32 Labs: BMP 06/18/19 06/18/19 06/19/19 04:05 12:56 02:32 Sodium 138 139 137 Potassium 2.7 L 2.8 L 3.1 L Chloride 96 L 96 L 100 Carbon Dioxide 32 H 35 H 30 H BUN 20 20 16 Creatinine 1.01 0.97 0.88 Glucose 115 H 112 H 162 H Calcium 8.1 L 8.8 8.1 L - ABG Interpretation ABG results: PT/INR, D-dimer PT 10.6 Seconds (9.4-12.1) 06/16/19 06:05 Consult Discharge Plan - Plan Instructions: Lysis of Abdominal Adhesions (DC), Bowel Obstruction (DC) Additional Instructions: General Surgical Discharge Instructions 1. No pushing, pulling, or lifting greater than 15 lbs for 6 weeks. 2. You may remove your dressings and shower beginning today, but no tub baths, soaking, or swimming for 2 weeks. 3. No driving for two weeks unless otherwise specified and then you may resume driving when you are off narcotics and are safe to react in a car. 4. Take ibuprofen every 8 hours for discomfort. Take your chronic suboxone as previously directed. 5. Take stool softeners (Colace) or a water based laxative (Miralax) while taking narcotics. You may hold for loose stools; otherwise your recommended to take MiraLAX daily until you are having daily bowel movements that are mashed potatoes consistency and then you may decrease to every other day or as needed. 6. Report any fevers greater than 100.5F, increase abdominal discomfort, drainage that looks like pus, increased redness or pain at the surgical site, or any vomiting. 7. Report any pain in the calves, shortness of breath, or rapid heartbeat. 8. Follow-up in the office as directed. 9. If you were prescribed antibiotics, do not stop them without talking to your provider. Referrals: Harleen Aldridge, ENDING MACHINE OPERATOR [Advanced Practice Nurse] - 07/06/19 2:00 pm NONE,PCP [Primary Care Provider] - (4) Diabetes Qualifiers: Diabetes mellitus type: type 2 Diabetes mellitus long wall mining machine tender insulin use: without long wall mining machine tender use Diabetes mellitus complication status: without complication Qualified Code(s): E11.9 - Type 2 diabetes mellitus without complications
[2019-06-19] MEDS ORDERED: hydroCHLOROthiazide 25 MG TABLET PO SCH (09:00)
[2019-06-19] MEDS: Insulin LISPRO 300 UNITS/3 ML VIAL SQ SCH ×2 (10:02→16:01)
[2019-06-19] MEDS: Potassium Chloride Elixir 20 MEQ/15 ML UDC PO SCH ×2 (10:03→12:26)
[2019-06-19] MEDS: *HR* Buprenorphine HCl 2 MG SUBLINGUAL TABLET SL SCH (10:03)
[2019-06-19] MEDS: Piperacillin/Tazobactam 3.375 GM in 0.9 % Sodium Chloride Mini Bag 100 ML IVPB SCH (10:04)
--- NOTE | 2019-06-19 13:39 | AcuteCareSurgery Progress Note ---
Date of Encounter: 06/19/19 Time of Encounter: 13:36 - Assessment and Plan (1) Small bowel obstruction Current Visit: Yes Status: Acute POD #3 s/p ex lap with GEMMA 2/2 SBO; tolerating diet, voiding, having bowel function; okay for discharge; follow up with Dr. Mcneill in 2-4 weeks for continued follow up; general surgery will sign off; please call with new questions or concerns; Subjective Patient reports: no new complaints, feels better, pain is less, tolerating liquids well, tolerating a regular diet, voiding w/o difficulty, flatus, bowel movement Objective Vital Signs - Last 8 Hours Temp Pulse Resp BP Pulse Ox 06/19/19 07:24 98.6 F 73 16 153/83 95 Intake and Output 06/18/19 06/19/19 06/19/19 23:59 07:59 15:59 Intake Total 3335 / 5257 1135 / 2135 1000 / 2135 Output Total 200 / 2400 475 / 875 400 / 875 Balance 3135 / 2857 660 / 1260 600 / 1260 Intake: IV Fluids 2915 / 4637 385 / 1385 1000 / 1385 Lactated Ringers 1,000 ML @ 125 2715 / 3715 285 / 1285 1000 / 1285 mls/hr IVC .Q8H MIRYAM Rx#: [id number] Ofirmev 1,000 mg/100 ml 1,000 100 / 100 mg In 100 ml @ 400 mls/hr IVPB Q6H PRN Rx#:[id number] Zosyn 3.375 GM In 0.9 % Sodium 100 / 300 100 / 100 Chloride (Mini-Bag +) 100 ML @ 25 mls/hr IVPB Q8HR MIRYAM Rx#: [id number] Oral 420 / 620 750 / 750 Output: Urine 200 / 1025 475 / 875 400 / 875 Other: Stool Size Small Small Stool Consistency liquid soft Stool Characteristics Normal for Patient Stool Color Brown Brown Yellow # Bowel Movements 1 Weight 106.6 kg Blood Glucose* 179 121 Patient Weight 06/19/19 23:59 Weight 106.6 kg - General physical appearance no distress - Respiratory normal expansion, normal respiratory effort - Cardiovascular Cardiovascular exam: Present: RRR - Abdomen Abdomen: Present: soft, tender (appropriately tender) - Incision Incision: Present: clean and dry - Neurologic CN 2-12 grossly intact - Musculoskeletal normal gait, normal posture - Psychiatric oriented to time, oriented to person, oriented to place - Labs 06/18/19 04:05 06/19/19 02:32 Diabetes panel 06/18/19 06/19/19 Range/Units 12:56 02:32 Sodium 139 137 (136-145) mEq/L Potassium 2.8 L 3.1 L (3.5-5.1) mEq/L Chloride 96 L 100 (98-107) mEq/L Carbon Dioxide 35 H 30 H (23-29) mEq/L BUN 20 16 (6-20) mg/dL Creatinine 0.97 0.88 (0.70-1.30) mg/dL Glucose 112 H 162 H (70-105) mg/dL Calcium 8.8 8.1 L (8.6-10.3) mg/dL Calcium panel 06/18/19 06/19/19 Range/Units 12:56 02:32 Calcium 8.8 8.1 L (8.6-10.3) mg/dL Phosphorus 2.8 (2.7-4.5) mg/dL Pituitary panel 06/18/19 06/19/19 Range/Units 12:56 02:32 Sodium 139 137 (136-145) mEq/L Potassium 2.8 L 3.1 L (3.5-5.1) mEq/L Chloride 96 L 100 (98-107) mEq/L Carbon Dioxide 35 H 30 H (23-29) mEq/L BUN 20 16 (6-20) mg/dL Creatinine 0.97 0.88 (0.70-1.30) mg/dL Glucose 112 H 162 H (70-105) mg/dL Calcium 8.8 8.1 L (8.6-10.3) mg/dL Adrenal panel 06/18/19 06/19/19 Range/Units 12:56 02:32 Sodium 139 137 (136-145) mEq/L Potassium 2.8 L 3.1 L (3.5-5.1) mEq/L Chloride 96 L 100 (98-107) mEq/L Carbon Dioxide 35 H 30 H (23-29) mEq/L BUN 20 16 (6-20) mg/dL Creatinine 0.97 0.88 (0.70-1.30) mg/dL Glucose 112 H 162 H (70-105) mg/dL Calcium 8.8 8.1 L (8.6-10.3) mg/dL Consult Discharge Plan - Plan Instructions: Lysis of Abdominal Adhesions (DC), Bowel Obstruction (DC) Additional Instructions: General Surgical Discharge Instructions 1. No pushing, pulling, or lifting greater than 15 lbs for 6 weeks. 2. You may remove your dressings and shower beginning today, but no tub baths, soaking, or swimming for 2 weeks. 3. No driving for two weeks unless otherwise specified and then you may resume driving when you are off narcotics and are safe to react in a car. 4. Take ibuprofen every 8 hours for discomfort. Take your chronic suboxone as previously directed. 5. Take stool softeners (Colace) or a water based laxative (Miralax) while taking narcotics. You may hold for loose stools; otherwise your recommended to take MiraLAX daily until you are having daily bowel movements that are mashed potatoes consistency and then you may decrease to every other day or as needed. 6. Report any fevers greater than 100.5F, increase abdominal discomfort, drainage that looks like pus, increased redness or pain at the surgical site, or any vomiting. 7. Report any pain in the calves, shortness of breath, or rapid heartbeat. 8. Follow-up in the office as directed. 9. If you were prescribed antibiotics, do not stop them without talking to your provider. Referrals: Harleen Aldridge CNP [Advanced Practice Nurse] - 07/06/19 2:00 pm NONE,PCP [Primary Care Provider] -
--- NOTE | 2019-06-19 13:57 | Discharge Summary ---
<Emil Varela - Last Filed: 06/19/19 14:50> Orders not resulted at time of discharge: Pending orders 06/16/19 06:05 Culture,Blood [BC] Routine Date of Encounter: 06/19/19 Hospital course: Mr. Morgan is a 53 year old male - Time Spent with Patient Total time spent providing and/or coordinating discharge services: - Discharge Medications Prescriptions: Continued Omeprazole [PriLOSEC] 40 mg PO DAILY Metformin HCl [Fortamet] 500 mg PO DAILY hydroCHLOROthiazide [Hydrochlorothiazide] 25 mg PO DAILY Tadalafil [Cialis] 5 mg PO DAILY Buprenorphine HCl/Naloxone HCl [Suboxone 8 mg-2 mg Sl Film] 1.75 strip SL DAILY Mometasone/Formoterol [Dulera 200 Mcg/5 Mcg Inhaler] 1 puff PO BID PRN PRN Reason: Shortness Of Breath Testosterone 1.62 mg TP DAILY Home Medications: Metformin HCl [Fortamet] 500 mg PO DAILY 06/15/19 [History] Omeprazole [PriLOSEC] 40 mg PO DAILY 06/15/19 [History] Tadalafil [Cialis] 5 mg PO DAILY 06/15/19 [History] hydroCHLOROthiazide [Hydrochlorothiazide] 25 mg PO DAILY 06/15/19 [History] Buprenorphine HCl/Naloxone HCl [Suboxone 8 mg-2 mg Sl Film] 1.75 strip SL DAILY 06/16/19 [History] Mometasone/Formoterol [Dulera 200 Mcg/5 Mcg Inhaler] 1 puff PO BID PRN 06/16/19 [History] Testosterone 1.62 mg TP DAILY 06/16/19 [History] Allergies/Adverse Reactions: Allergy/AdvReac Type Severity Reaction Status Date / Time No Known Allergies Allergy Verified 06/16/19 15:24 Date of admission: 06/15/19 22:50 Primary care physician: PCP NONE Consults: 06/15/19 20:56 Consult to Surgery [CONS] Stat Consulting Provider: Acute Care Surgery Reason for Consult: bowel obstruction Time Notified: 20:56 Call Completed: Yes - Constitutional Vitals: Temp Pulse Resp BP Pulse Ox 98.6 F 73 16 153/83 95 06/19/19 07:24 06/19/19 07:24 06/19/19 07:24 06/19/19 07:24 06/19/19 07:24 - Patient Status Disposition: Home, Self-Care Condition: Fair - Discharge Instructions Instructions: Lysis of Abdominal Adhesions (DC), Bowel Obstruction (DC) Follow Up With: Harleen Aldridge CNP [Advanced Practice Nurse] - 07/06/19 2:00 pm NONE,PCP [Primary Care Provider] - Additional Instructions: General Surgical Discharge Instructions 1. No pushing, pulling, or lifting greater than 15 lbs for 6 weeks. 2. You may remove your dressings and shower beginning today, but no tub baths, soaking, or swimming for 2 weeks. 3. No driving for two weeks unless otherwise specified and then you may resume driving when you are off narcotics and are safe to react in a car. 4. Take ibuprofen every 8 hours for discomfort. Take your chronic suboxone as previously directed. 5. Take stool softeners (Colace) or a water based laxative (Miralax) while taking narcotics. You may hold for loose stools; otherwise your recommended to take MiraLAX daily until you are having daily bowel movements that are mashed potatoes consistency and then you may decrease to every other day or as needed. 6. Report any fevers greater than 100.5F, increase abdominal discomfort, drainage that looks like pus, increased redness or pain at the surgical site, or any vomiting. 7. Report any pain in the calves, shortness of breath, or rapid heartbeat. 8. Follow-up in the office as directed. 9. If you were prescribed antibiotics, do not stop them without talking to your provider. - Attending Attestation I have seen and independently assessed this patient and I agree with plan as documented Exam Gen. NAD CVS. S1 S2 WNL Resp. CTAB Ext 2+ pulses GI. SOft, NT, ND, +BS Plan Small bowel obstruction. Surgery on board and patient is s/p exploratory laparotomy with lysis of adhesions. Tolerating regular diet. Okay for discharge. 35 minutes was spent discharging this patient <Jake Linares - Last Filed: 06/19/19 18:24> - NOTES TO OUTPATIENT PROVIDER Notes to Outpatient Provider: Pt had surgery to release SBO. Will follow-up with surgeon outpatient Orders not resulted at time of discharge: Pending orders 06/16/19 06:05 Culture,Blood [] Routine Date of Encounter: 06/19/19 Time of Encounter: 13:55 - Discharge Diagnosis (1) Small bowel obstruction Priority: Primary Status: Acute (2) Hypokalemia Priority: Primary Status: Acute (3) Essential hypertension Priority: Secondary Status: Chronic (4) Diabetes Priority: Secondary Status: Chronic Qualifiers: Diabetes mellitus type: type 2 Diabetes mellitus half-way insulin use: without terminal operator use Diabetes mellitus complication status: without complication Qualified Code(s): E11.9 - Type 2 diabetes mellitus without complications Hospital course: Mr. Morgan is a 53 year old male with a history of partial colectomy secondary to an obstruction in 2011. At that time he also underwent cholecystectomy and appendectomy. Also has a history of hypertension and diabetes. Since the emergency room complaining of diffuse abdominal pain that began 1 day prior to admission on 06/15/19 described as cramping accompanied by bloating and bowel distention. Last bowel movement was 2 days before admission and he had not passed any gas that day. Also reported profuse bilious vomiting, and reduce by mouth intake to 2 excessive vomiting. No fever or chills reported. CT scan obtained and emergency department showed concern for small bowel extraction with transition zone in mid pelvis. He was made nothing by mouth, an NG tube was placed, and he was started on IV fluids with analgesics and antiemetics as needed. He went for surgery to release by mouth on 06/16/19. Surgery was without complication patient tolerated procedure well. Following surgery patient was kept nothing by mouth with NG tube in place. Some pain and abdominal distention remained, patient began passing gas later in the night after surgery. Skin condition improved and bowel function began to return. On 06/18/19 NG tube was removed and diet was advanced. Patient tolerated advancing diet well and was discharged on 06/19/19 with instructions follow up outpatient with surgery. Dx: Small bowel obstruction Pertinent tests/consults: Surgery -CT abdomen pelvis: Evidence of small bowel obstruction -KUB X-ray Follow up: Outpatient surgery - Harleen Aldridge CNP 07/06/19 2:00pm Tests pending: None Med changes: None Mental status: awake, fully oriented - Time Spent with Patient Total time spent providing and/or coordinating discharge services: Date of admission: 06/15/19 22:50 Primary care physician: PCP NONE Consults: 06/15/19 20:56 Consult to Surgery [CONS] Stat Consulting Provider: Acute Care Surgery Reason for Consult: bowel obstruction Time Notified: 20:56 Call Completed: Yes - Constitutional Vitals: Temp Pulse Resp BP Pulse Ox 98.6 F 73 16 153/83 95 06/19/19 07:24 06/19/19 07:24 06/19/19 07:24 06/19/19 07:24 06/19/19 07:24 Exam: Gen: Vitals noted. No acute distress. NG tube in place , on suction with some red output. Eyes: anicteric sclerae, moist conjunctivae; no lid-lag; Pupils equal and reactive to light HENT: Atraumatic, normocephalic; oropharynx clear with moist mucous membranes and no mucosal ulcerations Neck: Trachea midline; supple, no thyromegaly or lymphadenopathy Cardiac: RRR, no murmurs, rubs or gallops, S1/S2 Pulmonary: CTA bilaterally, no wheezes, rales or rhonchi, equal chest expansion Abdomen: Bandage over incision above the umbilicus, Clean and dry. Some tenderness to palpation around epigastrium. Abdomen soft, no rigidity or guarding MSK: ROM intact, no joint swelling noted Extremities: no BLE edema, nontender calf, no cyanosis or clubbing Skin: Normal temperature, turgor and texture; no rash, ulcers or subcutaneous nodules Neuro: moves all extremities, no focal deficits. Psych: Appropriate mood and behavior. A&Ox3
== END 2019-06-19 15:30 | disposition home or self-care (01) | DRG 337 ==
LOC: EMEROOARM 17:53 → 3ANU 17:53
PROVIDERS: ADMIT Internal Medicine; ATTEND Internal Medicine